=== PATIENT | male | born 1970 | race Hispanic/Latino ===

== ENCOUNTER 2020-03-15 06:35 | Inpatient (IN) | payer MEDICAID ==
[~2020-03-15] VITALS: Ht 172.7 cm; Wt 86.2 kg
[2020-03-15 07:06] VITALS: BP 152/57
--- NOTE | 2020-03-15 07:08 | NUR ---
ED Nurse Note: Patient brought in by ambulance from [place] [facility] d/t hyperglycemia. Patient aao x 4. Patient has dialysis shunt on right lower arm and gets dialysis T,Th, Sat. Patient no c/o pain. Blood sugar upon assessment was 270 mg/dL. Patient is right leg amputee. Patient placed on athletic monitor. Blood collected and sent to lab. Patient unable to produce urine. Patient stable upon assessment.
--- NOTE | 2020-03-15 07:24 | NUR ---
HAND-OFF: Report given to ISMA Purdy.
[2020-03-15] MEDS ORDERED: Acetaminophen 500mg (ES) tab ORAL ONE (07:30)
--- NOTE | 2020-03-15 07:50 | NUR ---
ED Nurse Note: Covid test sent to lab. Pt unable to urinate due to dialysis and refuses straight cath or indwelling, Dr Fletcher aware.
[2020-03-15 08:00] LABS: BASOPHILS % (AUTO) 0.6 % (0.0-2.0); EOSINOPHILS % (AUTO) 0.2 % (0.0-3.0); HEMATOCRIT 30.5 % (42.0-52.0); HEMOGLOBIN 10.5 G/DL (14.2-18.0); LYMPHOCYTES % (AUTO) 12.1 % (20.0-45.0); MEAN CORPUSCULAR VOLUME 89 FL (80-99); MONOCYTES % (AUTO) 8.9 % (1.0-10.0); NEUTROPHILS % (AUTO) 78.2 % (45.0-75.0); PLATELET COUNT 198 K/UL (150-450); RED BLOOD COUNT 3.45 M/UL (4.70-6.10); RED CELL DISTRIBUTION WIDTH 12.9 % (11.6-14.8); WHITE BLOOD COUNT 6.7 K/UL (4.8-10.8)
[2020-03-15 08:13] LABS: ANION GAP 19 mmol/L (5-15); BLOOD UREA NITROGEN 41 mg/dL (7-18); CALCIUM 8.2 MG/DL (8.5-10.1); CARBON DIOXIDE 19 MMOL/L (21-32); CHLORIDE 87 MMOL/L (98-107); POTASSIUM 3.9 MMOL/L (3.5-5.1); SODIUM 124 MMOL/L (136-145)
[2020-03-15 08:28] LABS: ALANINE AMINOTRANSFERASE 26 U/L (12-78); ALBUMIN 3.2 G/DL (3.4-5.0); ALBUMIN/GLOBULIN RATIO 0.7 (1.0-2.7); ALKALINE PHOSPHATASE 71 U/L (46-116); ASPARTATE AMINO TRANSFERASE 31 U/L (15-37); BILIRUBIN,TOTAL 0.7 MG/DL (0.2-1.0); CKMB 0.8 NG/ML (0.0-3.6); CREATINE KINASE 180 U/L (26-308)
--- NOTE | 2020-03-15 08:39 | Emergency Room Report ---
History of Present Illness General Chief Complaint: Fever Source: Medical Record Present Illness HPI 50-year-old male presents ED for evaluation of fever. [facility] Fever x1 day. Temp 103.6 in triage. Denies cough. Denies chest pain or shortness of breath. Patient gets dialysis and may have contact with COVID during dialysis session. No other aggravating relieving factors. Denies any other associated symptoms Allergies: Coded Allergies: No Known Allergies (Verified , 03/05/10) COVID-19 Screening Contact w/high risk pt: Yes Recent Travel to affected area: No Experienced COVID-19 symptoms?: Yes COVID-19 symptoms experienced: Fever (T>100.4F or >38C), Shortness of Breath Patient History Past Medical History: HTN, renal disease, dialysis Past Surgical History: other - R BKA Social History: Denies: smoking, alcohol use, drug use Immunizations: UTD Reviewed Nursing Documentation: PMH: Agreed; PSxH: Agreed Nursing Documentation-PMH Hx Hypertension: Yes Hx Diabetes: Yes - R BKA Hx Gastrointestinal Problems: Yes - GERD, ESRD dialysis Review of Systems All Other Systems: negative except mentioned in HPI Physical Exam Vital Signs Date Time Temp Pulse Resp B/P (MAP) Pulse Ox O2 Delivery O2 Flow Rate FiO2 03/15/20 06:43 103.6 86 20 136/60 (85) 96 Room Air Sp02 EP Interpretation: reviewed, normal General Appearance: no apparent distress, alert, GCS 15, non-toxic Head: normocephalic, atraumatic Eyes: bilateral eye normal inspection, bilateral eye PERRL ENT: hearing grossly normal, normal pharynx, no angioedema, normal voice Neck: full range of motion, supple/symm/no masses Respiratory: chest non-tender, lungs clear, normal breath sounds, speaking full sentences Cardiovascular #1: regular rate, rhythm, no edema Cardiovascular #2: 2+ carotid (R), 2+ carotid (L), 2+ radial (R), 2+ radial (L) , 2+ dorsalis pedis (R), 2+ dorsalis pedis (L) Gastrointestinal: normal bowel sounds, non tender, soft, non-distended, no guarding, no rebound Rectal: deferred Genitourinary: normal inspection, no CVA tenderness Musculoskeletal: back normal, non-tender, other - s/p R BKA Neurologic: alert, motor strength/tone normal, oriented x3, sensory intact, responsive, speech normal Psychiatric: judgement/insight normal, memory normal, mood/affect normal, no suicidal/homicidal ideation Reflexes: 3+ bicep (R), 3+ bicep (L), 3+ tricep (R), 3+ tricep (L), 3+ knee (R) , 3+ knee (L) Skin: other - see nursing skin notes Lymphatic: no adenopathy Medical Decision Making Diagnostic Impression: Primary Impression: Fever Qualified Codes: R50.9 - Fever, unspecified Additional Impression: ESRD (end stage renal disease) on dialysis ER Course Hospital Course 50 yo M presents with fever. h/o ESRD. concern for COVID from SNF Differential diagnoses include: Pneumonia, CHF exacerbation, pneumothorax, fluid overload Clinical course Patient placed on stretcher. In isolation. I wore full PPE. On security monitor with stable vitals. After initial history and physical, I ordered labs , EKG, chest x-ray, blood culture. given tylenol Labs - no leukocytosis, hemoglobin/hematocrit stable, Na 124, BUN/Cr elevated, K ok, trop 0.068, lactate okay CXR - bilateral patchy infiltrates COVID sent. abx given Case discussed with Dr. Mckeon and he agreed to the patient to his service for further care and support I feel this is a highly complex case requiring extensive working including EKG/ Rhythm strip, Xray/CT/US, Blood/urine lab work, repeat exams while in ED, and administration of strong opiates/narcotics for pain control, admission to hospital or close patient follow up. Diagnosis - fever, ESRD Patient admitted to floor in serious condition Labs Test 03/15/20 06:55 White Blood Count 6.7 K/UL (4.8-10.8) Red Blood Count 3.45 M/UL (4.70-6.10) Hemoglobin 10.5 G/DL (14.2-18.0) Hematocrit 30.5 % (42.0-52.0) Mean Corpuscular Volume 89 FL (80-99) Mean Corpuscular Hemoglobin 30.3 PG (27.0-31.0) Mean Corpuscular Hemoglobin Concent 34.3 G/DL (32.0-36.0) Red Cell Distribution Width 12.9 % (11.6-14.8) Platelet Count 198 K/UL (150-450) Mean Platelet Volume 5.7 FL (6.5-10.1) Neutrophils (%) (Auto) 78.2 % (45.0-75.0) Lymphocytes (%) (Auto) 12.1 % (20.0-45.0) Monocytes (%) (Auto) 8.9 % (1.0-10.0) Eosinophils (%) (Auto) 0.2 % (0.0-3.0) Basophils (%) (Auto) 0.6 % (0.0-2.0) Sodium Level 124 MMOL/L (136-145) Potassium Level 3.9 MMOL/L (3.5-5.1) Chloride Level 87 MMOL/L (98-107) Carbon Dioxide Level 19 MMOL/L (21-32) Anion Gap 19 mmol/L (5-15) Blood Urea Nitrogen 41 mg/dL (7-18) Creatinine 8.0 MG/DL (0.55-1.30) Estimat Glomerular Filtration Rate 7.2 mL/min (>60) Glucose Level 298 MG/DL (74-106) Lactic Acid Level 0.70 mmol/L (0.4-2.0) Calcium Level 8.2 MG/DL (8.5-10.1) Total Bilirubin 0.7 MG/DL (0.2-1.0) Aspartate Amino Transf (AST/SGOT) 31 U/L (15-37) Alanine Aminotransferase (ALT/SGPT) 26 U/L (12-78) Alkaline Phosphatase 71 U/L (46-116) Total Creatine Kinase 180 U/L (26-308) Creatine Kinase MB 0.8 NG/ML (0.0-3.6) Creatine Kinase MB Relative Index 0.4 Troponin I 0.068 ng/mL (0.000-0.056) Pro-B-Type Natriuretic Peptide 4247 pg/mL (0-125) Total Protein 7.6 G/DL (6.4-8.2) Albumin 3.2 G/DL (3.4-5.0) Globulin 4.4 g/dL Albumin/Globulin Ratio 0.7 (1.0-2.7) EKG Diagnostic Results Rate: normal Rhythm: NSR ST Segments: no acute changes ASA given to the pt in ED: No Rhythm Strip Diag. Results EP Interpretation: yes Rhythm: NSR, no PVC's, no ectopy Chest X-Ray Diagnostic Results Chest X-Ray Diagnostic Results : Chest X-Ray Ordered: Yes # of Views/Limited/Complete: 1 View Indication: Shortness of Breath EP Interpretation: Yes Interpretation: no pneumothorax, other - bilateral patchy infiltrates Impression: Other - pneumonia Electronically Signed by: Electronically signed by Rio Fletcher MD Last Vital Signs Date Time Temp Pulse Resp B/P (MAP) Pulse Ox O2 Delivery O2 Flow Rate FiO2 03/15/20 07:06 103.6 89 22 152/57 97 Room Air Status: improved Disposition: ADMITTED INPATIENT Condition: Serious Referrals: NON PHYSICIAN (PCP) Rio Fletcher MD Mar 15, 2020 08:39
--- NOTE | 2020-03-15 08:42 | Diagnostic Imaging Report ---
EXAM: XR Chest, 1 View CLINICAL HISTORY: Shortness of breath TECHNIQUE: Frontal view of the chest. COMPARISON: No relevant prior studies available. FINDINGS: Lungs: Bilateral predominantly peripheral groundglass haziness and consolidation. Pleural space: Unremarkable. The costophrenic angles are sharp. No visible pneumothorax. Heart: Cardiomegaly. Mediastinum: Unremarkable. Bones/joints: Unremarkable. Tubes, lines and devices: Telemetry leads overlie the thorax. IMPRESSION: 1. Bilateral predominantly peripheral groundglass haziness and consolidation. This may represent multilobar pneumonia versus pulmonary edema. 2. Cardiomegaly.
[2020-03-15] MEDS ORDERED: Azithromycin 500 MG in D5W 275 ML IVPB ONE (09:15)
[2020-03-15] MEDS ORDERED: Piperacillin/Tazobactam 3.375 GM in NS 110 ML IVPB ONE (09:15)
[2020-03-15] MEDS ORDERED: Hydroxychloroquine Fact Sheet MISC ONE (09:45)
[2020-03-15 10:00] VITALS: BP 151/53
[2020-03-15] MEDS ORDERED: ASPIRIN EC81 MG ORAL (10:19)
[2020-03-15] MEDS ORDERED: LEXAPRO10 MG ORAL (10:19)
[2020-03-15] MEDS ORDERED: ISOSORBIDE MONO30 M1 PO (10:19)
[2020-03-15] MEDS ORDERED: QUETIAPINE FUMA25 MG ORAL (10:19)
[2020-03-15] MEDS ORDERED: PRO-AMATINE10 MG ORAL (10:19)
[2020-03-15] MEDS ORDERED: RANOLAZINE ER500 MG PO (10:19)
[2020-03-15] MEDS ORDERED: HYDRALAZINE HCL10 MG ORAL (10:19)
[2020-03-15] MEDS ORDERED: ATORVASTATIN CA40 MG ORAL (10:19)
[2020-03-15] MEDS ORDERED: LEVEMIR100 UNIT/1 SUBQ (10:19)
[2020-03-15] MEDS ORDERED: REGLAN5 MG ORAL (10:19)
[2020-03-15] MEDS ORDERED: MINOXIDIL10 MG PO (10:19)
[2020-03-15] MEDS ORDERED: FERROUSUL325 M1 PO (10:19)
[2020-03-15] MEDS ORDERED: HUMALOG100 UNIT/4 SUBQ (10:19)
[2020-03-15] MEDS ORDERED: FAMOTIDINE20 MG ORAL (10:19)
[2020-03-15] MEDS ORDERED: NOVOLIN R100 UNIT/1 SUBQ (10:19)
[2020-03-15] MEDS ORDERED: MELATONIN3 M1 ORAL (10:19)
[2020-03-15 12:40] VITALS: BP 146/59
[2020-03-15 14:20] VITALS: BP 150/51
--- NOTE | 2020-03-15 14:29 | NUR ---
ED Nurse Note: Report given to Bacilio ASHBY.
--- NOTE | 2020-03-15 15:40 | NUR ---
ED Nurse Note: Pt transferred to [facility] floor via gurney. Pt took all belongings.
--- NOTE | 2020-03-15 15:50 | NUR ---
NURSE NOTES: Patient arrived to the unit via gurney. Awake, A/O x3. [place] speaking. On room air. VSS. IV in the Left forearm, site is intact. Right arm shunt noted. Bed at the lowest position, bed locked, call light within reach, side rails up x2. Belongings list verified.
--- NOTE | 2020-03-15 15:51 | General Progress Note ---
Progress Note Progress Note [id number] full note dictated Farheen Barcenas MD Mar 15, 2020 15:51
[2020-03-15 16:00] VITALS: BP 129/63
--- NOTE | 2020-03-15 16:14 | Consultation ---
DATE OF CONSULTATION: 03/15/2020 PULMONARY CONSULTATION CONSULTING PHYSICIAN: Don Chowdary M.D. HISTORY OF PRESENT ILLNESS: This is a 50-year-old male who is a detention resident. He has been continued on dialysis. He came to the hospital with shortness of breath. He is also found to be febrile. Patient is unable to provide any further history. PAST MEDICAL HISTORY: Notable for ESRD on dialysis, hypertension. PREVIOUS SURGERIES: Right BKA. SOCIAL HISTORY: No history of alcohol or tobacco. He lives at a detention. HOME MEDICATIONS: Reviewed and reconciled in chart. PHYSICAL EXAMINATION: GENERAL: Reveals a 50-year-old male. HEENT: Unremarkable. CHEST: Showed decreased breath sounds bilaterally with normal heart sounds. ABDOMEN: Soft. EXTREMITIES: There is no edema. He has a right BKA. NEUROLOGIC: Nonfocal. VITAL SIGNS: Blood pressure is 150/60, heart rate is 84, respirations are 20, O2 saturation 97% on room air, T-max 103.6. LABORATORY DATA: Lab testing shows normal CBC except for hemoglobin of 10. Sodium 124, creatinine of 8. Troponin 0.06. Lactic acid 0.7. Influenza A and B is negative. X-ray chest is obtained this morning, which shows bilateral peripheral ground-glass haziness, suspicious for COVID-19. IMPRESSION: 1. Pneumonia, suspect COVID-19. 2. Rule out pulmonary edema. 3. ESRD on dialysis. 4. Hypertension. 5. Right BKA. 6. jail resident. DISCUSSION: Admit to the hospital. I will treat empirically as COVID-19 although this x-ray may also represent pulmonary edema. Patient needs urgent expeditious hemodialysis as well as the use of Plaquenil as well as azithromycin recommended. Await ID evaluation. We will order oxygen and pulmonary hygiene. We will follow. Don Chowdary M.D. DR: RAAD JOB#: [id number] CC:
[2020-03-15] MEDS ORDERED: Albuterol/Ipratropium 3ml neb HHN PRN (17:15)
[2020-03-15] MEDS ORDERED: Insulin Human Regular 100units/ml 3ml SUBQ SCH (17:15)
--- NOTE | 2020-03-15 17:37 | NUR ---
NURSE NOTES: Notified Dr. Mckeon for DVT ppx orders. Awaiting a response.
[2020-03-15] MEDS: NovoLOG Insulin Flexpen SUBQ SCH (18:00)
[2020-03-15] MEDS: cefTRIAXone 1 GM in D5W 55 ML IVPB SCH (18:22)
[2020-03-15] MEDS: Midodrine 10mg tab ORAL SCH (18:22)
[2020-03-15] MEDS: Ranolazine 500mg tab ORAL SCH (18:22)
--- NOTE | 2020-03-15 19:20 | NUR ---
HAND-OFF: Report given to Luis Angel ASHBY.
[2020-03-15 20:00] VITALS: BP 119/63
--- NOTE | 2020-03-15 21:00 | NUR ---
NURSE NOTES: Received patient awake, alert, verbal, febrile, given prn medication for fever.
[2020-03-15] MEDS: HydrALAZINE 10mg Tab ORAL SCH (21:32)
[2020-03-15] MEDS: Atorvastatin 80mg tab ORAL SCH (21:32)
[2020-03-16] VITALS (7 sets, daily range): BP systolic 130–150; BP diastolic 62–85
--- NOTE | 2020-03-16 02:15 | History and Physical Report ---
DATE OF ADMISSION: 03/15/2020 HISTORY OF PRESENT ILLNESS: The patient is a 50-year-old male who came to the emergency room. He has exposure to COVID at hemodialysis center. The patient also has minimum cough and low-grade fever, but he is not short of breath. PAST MEDICAL HISTORY: Significant for end-stage renal disease, hypertension, and diabetes. MEDICATIONS: See the list. ALLERGIES: NKA. FAMILY HISTORY: Noncontributory. SOCIAL HISTORY: The patient lives at jail. PHYSICAL EXAMINATION: GENERAL: This is a young male who is currently awake and comfortable. VITAL SIGNS: Blood pressure is 129/63, pulse 66, respirations 18, temperature 97.5, O2 saturation 98% SKIN: Good skin turgor. HEENT: NAD. CHEST: Bilaterally few crackles, bibasilar. CARDIOVASCULAR: Regular rhythm. No gallop. No murmur. ABDOMEN: Soft. Positive bowel sounds. EXTREMITIES: CCE. NEUROLOGICAL: The patient has no focal deficit. GENITOURINARY: Deferred. LABORATORY AND DIAGNOSTIC DATA: White count 6.7, hemoglobin 11, hematocrit 31, platelets are 198. Sodium 144, potassium 3.9, BUN 41, creatinine 8. EKG, nonspecific ST and T-wave changes. Chest x-ray, chronic interstitial changes. ASSESSMENT: 1. Rule out COVID. 2. End-stage renal disease. 3. Low-grade fever. 4. Hypertension. 5. Fluid overload. PLAN: We will admit on medical floor. Start renal diet and sliding scale. Accu-Chek, hemodialysis, consider Pulmonary and Nephrology consult and ID consult, also keep him in isolation until he ruled out for COVID Iron Mckeon M.D. DR: Roberto JOB#: [id number] CC:
--- NOTE | 2020-03-16 03:00 | Consultation ---
DATE OF CONSULTATION: 03/15/2020 NEPHROLOGY CONSULTATION CONSULTING PHYSICIAN: Farheen Barcenas M.D. REFERRING PHYSICIAN: Kumar Mckeon M.D. REASON FOR CONSULTATION: End-stage renal disease, need for dialysis. HISTORY OF PRESENT ILLNESS: The patient is a 50-year-old male with past medical history significant for diabetes, hypertension, cerebrovascular disease, status post right BKA, history of end-stage renal disease, on dialysis. he received dialysis yesterday, who was brought from long-term facility for evaluation of fever. The patient had a temperature of 103 and probably had close contact with someone who had COVID-19. The patient with these symptoms was admitted in the hospital. I was called for management of renal disease and electrolyte imbalance. This morning, when I saw the patient in ER, the patient continues to be confused, complained of fever and chills. No night sweat. Also complained of mild shortness of breath. PAST MEDICAL HISTORY: 1. End-stage renal disease. 2. Anemia of chronic kidney disease. 3. Renal osteodystrophy. 4. Hypertension. 5. Diabetes. PRIOR SURGICAL HISTORY: 1. History of AV fistula placement. Right upper extremity currently is being used for AV fistula in the forearm. 2. History of BKA. FAMILY HISTORY: Noncontributory. MEDICATIONS: Reviewed. REVIEW OF SYSTEMS: Somewhat vague and very limited. The patient is awake, alert and oriented to his mood and place. He is not providing appropriate answer to my question. PHYSICAL EXAMINATION: VITAL SIGNS: The patient had temperature of 103.6, pulse rate of 86, respiratory rate of 20, blood pressure 136/60. HEAD AND NECK: No JVP. No LAD. No thyromegaly. Extraocular movement intact. Pupils are reactive to light and accommodation. LUNGS: Have decreased breathing sounds. CARDIAC: Regular rate and rhythm. S1 and S2. No murmur. No rub. ABDOMEN: Soft, nontender, and nondistended. EXTREMITIES: Right BKA. Otherwise negative. LABORATORY DATA: Lab values reveal WBC count of 6.7, hemoglobin of 10.5, hematocrit of 30, platelet count of 198. Chemistry revealed sodium 124, potassium 3.6, chloride 87, bicarb 19. BUN of 41, creatinine of 8. Calcium of 8.2. Troponin 0.68. BNP of 4222. ASSESSMENT: 1. Hyponatremia. 2. Hypocalcemia. 3. End-stage renal disease. 4. Anemia of chronic kidney disease. 5. Renal osteodystrophy. 6. Hypertension. 7. Rule out COVID-19. PLAN: Plan for the patient to receive dialysis. We will start IV piggyback normal saline, free water restriction. Repeat sodium level. Check the vitamin D and PTH for evaluation of renal osteodystrophy and hypocalcemia. Monitor electrolytes closely. Again I would like to thank Dr. Iron Mckeon for allowing me to participate in the care of this patient. Farheen Barcenas M.D. DR: YAS JOB#: [id number] CC:
[2020-03-16] MEDS: Calcium Acetate 667mg Tab ORAL SCH ×3 (05:39→16:15)
[2020-03-16] MEDS: HydrALAZINE 10mg Tab ORAL SCH ×3 (05:39→22:00)
--- NOTE | 2020-03-16 06:19 | NUR ---
NURSE NOTES: Spoke with Lee peterson [facility]ph[facility] for hemodialysis scheduled for today.
--- NOTE | 2020-03-16 07:14 | NUR ---
HAND-OFF: Report given to Bacilio Washburn RN.
--- NOTE | 2020-03-16 07:15 | NUR ---
NURSE NOTES: Received patient in bed. Awake, A/O x4. On room air. Patient denies pain. IV in the Left forearm site intact. Right arm dialysis shunt site intact. Patient sitting in semi-fowlers, side rails up x2, bed low and locked, call light within reach.
[2020-03-16] MEDS: Midodrine 10mg tab ORAL SCH ×3 (09:00→17:22)
[2020-03-16] MEDS: Minoxidil 10mg tab ORAL SCH ×2 (09:00→17:22)
[2020-03-16] MEDS: NovoLOG Insulin Flexpen SUBQ SCH ×3 (09:00→17:23)
[2020-03-16] MEDS: Imdur 30mg tab ORAL SCH (09:00)
--- NOTE | 2020-03-16 09:00 | NUR ---
NURSE NOTES: BP meds held d/t HD today.
[2020-03-16] MEDS: Ranolazine 500mg tab ORAL SCH ×2 (09:41→17:04)
[2020-03-16] MEDS: Aspirin EC 81mg tab ORAL SCH (09:41)
--- NOTE | 2020-03-16 10:42 | NUR ---
*-* INSURANCE *-* ALL CLINICALS AND REVIEWS HAVE BEEN FAXED TO: [place] [phone] Work Work Fax
--- NOTE | 2020-03-16 10:42 | NUR ---
*-* NO INSURANCE INFORMATION IN THE BAR UNABLE TO SEND CLINICALS AND REVIEWS *-*
--- NOTE | 2020-03-16 10:45 | Pulmonology Progress Note ---
Assessment/Plan Assessment/Plan IMPRESSION: 1. Pneumonia, suspect COVID-19. 2. Rule out pulmonary edema. 3. ESRD on dialysis. 4. Hypertension. 5. Right BKA. 6. retirement resident. DISCUSSION: Possible COVID-19, although this x-ray may also represent pulmonary edema. Hemodialysis per renal Seen by ID I will order oxygen and pulmonary hygiene. I will follow. Subjective Interval Events: None new Constitutional: Reports: no symptoms HEENT: Repors: no symptoms Respiratory: Reports: no symptoms Cardiovascular: Reports: no symptoms Gastrointestinal/Abdominal: Reports: no symptoms Allergies: Coded Allergies: No Known Allergies (Verified , 03/05/10) Objective Last 24 Hour Vital Signs Date Time Temp Pulse Resp B/P (MAP) Pulse Ox O2 Delivery O2 Flow Rate FiO2 03/16/20 08:00 98.1 64 18 141/69 (93) 94 03/16/20 05:39 131/68 03/16/20 04:00 99.1 64 20 131/68 (89) 97 03/16/20 00:05 99.4 65 20 140/69 (92) 97 03/15/20 22:03 99.4 03/15/20 21:32 119/63 03/15/20 20:25 Room Air 03/15/20 20:00 102.0 64 20 119/63 (81) 97 03/15/20 16:28 Room Air 03/15/20 16:00 97.5 66 18 129/63 (85) 98 03/15/20 15:40 102.0 82 16 142/50 96 Room Air 03/15/20 14:20 102.0 85 18 150/51 97 Room Air 03/15/20 12:40 102.0 81 22 146/59 96 Room Air Intake and Output 03/15/20 03/16/20 19:00 07:00 Intake Total 100 ml 240 ml Balance 100 ml 240 ml Intake Oral 100 ml 240 ml General Appearance: no acute distress HEENT: normocephalic Respiratory/Chest: chest wall non-tender, lungs clear Cardiovascular: normal peripheral pulses, normal rate Abdomen: normal bowel sounds Microbiology Date/Time Source Procedure Growth Status 03/15/20 07:50 Nasal Nares - Final Complete 03/15/20 07:50 Nasal Nares - Final Complete Current Medications Medications (Trade) Dose Ordered Sig/Rima Route PRN Reason Start Time Stop Time Status Last Admin Dose Admin Acetaminophen (Tylenol) 650 mg Q4H PRN ORAL Mild Pain (Pain Scale 1-3) 03/15/20 21:15 04/14/20 21:14 03/15/20 21:33 Albuterol/ Ipratropium (Albuterol/ Ipratropium) 3 ml Q6HRT PRN HHN Shortness of Breath 03/15/20 17:15 03/20/20 17:14 Aspirin (Ecotrin) 81 mg DAILY ORAL 03/16/20 09:00 04/30/20 08:59 03/16/20 09:41 Atorvastatin Calcium (Lipitor) 40 mg BEDTIME ORAL 03/15/20 21:00 06/13/20 20:59 03/15/20 21:32 Calcium Acetate (Phoslo) 1,334 mg TIAC ORAL 03/16/20 06:30 06/14/20 06:29 03/16/20 05:39 Ceftriaxone Sodium 1 gm/ Dextrose 55 ml @ 110 mls/hr Q24H IVPB 03/15/20 17:15 03/22/20 17:14 03/15/20 18:22 Dextrose (Dextrose 50%) 25 ml Q30M PRN IV Hypoglycemia 03/15/20 18:00 06/13/20 17:59 Dextrose (Dextrose 50%) 50 ml Q30M PRN IV Hypoglycemia 03/15/20 18:00 06/13/20 17:59 Escitalopram Oxalate (Lexapro) 5 mg DAILY ORAL 03/16/20 09:00 04/15/20 08:59 03/16/20 09:40 Famotidine (Pepcid) 20 mg DAILY ORAL 03/16/20 09:00 06/14/20 08:59 03/16/20 09:41 Ferrous Sulfate (Feosol) 325 mg DAILY ORAL 03/16/20 09:00 06/14/20 08:59 03/16/20 09:41 Hydralazine HCl (Apresoline) 10 mg EVERY 8 HOURS ORAL 03/15/20 22:00 06/13/20 21:59 03/16/20 05:39 Hydroxychloroquine Sulfate (Plaquenil) 200 mg Q12HR ORAL 03/16/20 09:00 03/19/20 21:01 03/16/20 09:41 Insulin Aspart (NovoLOG) TWICE A DAY SUBQ 03/15/20 18:00 06/13/20 17:59 Insulin Aspart (NovoLOG) 12 units DAILY SUBQ 03/16/20 09:00 06/14/20 08:59 03/16/20 09:30 Isosorbide Mononitrate (Imdur) 30 mg DAILY ORAL 03/16/20 09:00 04/15/20 08:59 Metoclopramide HCl (Reglan) 5 mg TID ORAL 03/15/20 18:00 04/14/20 17:59 03/16/20 09:41 Midodrine (Pro-Amatine) 10 mg THREE TIMES A DAY ORAL 03/15/20 18:00 06/13/20 17:59 03/15/20 18:22 Minoxidil (Loniten) 10 mg MoWeFr@0900,1800 ORAL 03/16/20 09:00 06/14/20 08:59 Minoxidil (Loniten) 10 mg Traylor@0900,1800 ORAL 03/22/20 09:00 06/20/20 08:59 Non-Formulary Medication (Non-Formulary Med) 1 ea BEDTIME ORAL 03/15/20 21:00 04/14/20 20:59 UNV Quetiapine Fumarate (SEROqueL) 25 mg DAILY ORAL 03/16/20 09:00 04/30/20 08:59 03/16/20 09:40 Ranolazine (Ranexa ER 500mg) 500 mg BID ORAL 03/15/20 18:00 06/13/20 17:59 03/16/20 09:41 Don Chowdary MD Mar 16, 2020 10:45
--- NOTE | 2020-03-16 11:51 | NUR ---
NURSE NOTES: Tylenol 650mg taken out twice d/t patient spill the first time.
--- NOTE | 2020-03-16 13:00 | Consultation ---
DATE OF CONSULTATION: 03/16/2020 INFECTIOUS DISEASES CONSULTATION CONSULTING PHYSICIAN: Efren Mcmanus M.D. REFERRING PHYSICIAN: Iron Mckeon M.D. REASON FOR CONSULTATION: To rule out COVID-19 pneumonia. HISTORY OF PRESENTING ILLNESS: This is a 50-year-old gentleman with history of diabetes, hypertension, renal failure, on dialysis, who apparently comes in with fever and cough. There was a concern for COVID-19 pneumonia and an Infectious Diseases consultation has been obtained for antibiotics. Apparently, he had exposure to COVID-19 at dialysis. PAST MEDICAL HISTORY: 1. History of diabetes. 2. Hypertension. 3. Renal failure, on dialysis. MEDICATIONS: As an inpatient, he is on minoxidil, hydroxychloroquine was started yesterday, aspirin, Lexapro, famotidine, ferrous sulfate, Imdur, Seroquel, insulin, calcium acetate, hydralazine, Tylenol, atorvastatin, metoclopramide, midodrine, ranolazine, ceftriaxone, and albuterol. ALLERGIES: No known drug allergies. SOCIAL HISTORY: He does not smoke, drink, or use drugs. FAMILY HISTORY: Noncontributory. REVIEW OF SYSTEMS: RESPIRATORY: He has fever. He has cough. No shortness of breath. No chest pain. CARDIAC: No chest pain. No palpitation. No dizziness. No syncope. GASTROINTESTINAL: No nausea. No vomiting. No abdominal pain or diarrhea. PHYSICAL EXAMINATION: VITAL SIGNS: Temperature of 98.1, T-max of 103.6, pulse of 64, respiratory rate 18, blood pressure 141/69, O2 saturation of 94%. Examination deferred due to possibility of COVID-19. LABORATORY AND DIAGNOSTIC DATA: White count 6.7, hemoglobin 10.5, hematocrit 30.5, MCV 89, platelet count of 198. Sodium 124, potassium 3.9, chloride 87, bicarb 19, BUN 41, creatinine 8, glucose 298, calcium 8.2. Total bilirubin 0.7, AST 31, ALT 26, alkaline phosphatase 71. CK of 180, CK-MB 0.8. Troponin 0.068. Beta-natriuretic peptide 4247. Total protein 7.6, albumin 3.2. Nasal swab was negative for influenza A and B. Chest x-ray is showing bilateral predominantly peripheral ground-glass haziness and consolidation may represent multilobar pneumonia versus pulmonary edema. ASSESSMENT: 1. This is a 50-year-old gentleman with history of diabetes, hypertension, renal failure, on dialysis, who comes in with cough and low-grade fever with exposure to COVID-19 in the dialysis center, would be concerned regarding COVID-19 pneumonia. 2. Fevers, improving. 3. Diabetes. 4. Hypertension. 5. Renal failure, on dialysis. PLAN: 1. Continue hydroxychloroquine three more days. 2. Continue ceftriaxone for now. 3. We will follow up COVID-19 swab testing. 4. We will follow up the patient clinically. I would like to thank, Dr. Mckeon for this consultation. Efren Mcmanus M.D. DR: SAUL JOB#: [id number] CC: Iron Mckeon M.D.; Fax#: [phone]
--- NOTE | 2020-03-16 14:00 | NUR ---
NURSE NOTES: Per [facility], patient to receive HD 6-7 PM.
[2020-03-16] MEDS: cefTRIAXone 1 GM in D5W 55 ML IVPB SCH (16:15)
--- NOTE | 2020-03-16 17:00 | NUR ---
NURSE NOTES: Notified MD we are unable to get someone to bring trintellix 10 mg from the patient's halfway to the hospital. Awaiting for response.
--- NOTE | 2020-03-16 19:15 | NUR ---
HAND-OFF: Report given to Renatau RN.
--- NOTE | 2020-03-16 19:30 | NUR ---
NURSE NOTES: Called [facility] and spoke with Jacinto. Called to inform that patient is awaiting for HD scheduled today. Will continue to follow up.
--- NOTE | 2020-03-16 19:46 | NUR ---
NURSE NOTES: Patient is awake, alert, and verbally responsive. Speak [place]. Breathing unlabored on room air without distress. Denies pain or discomfort at this time. IV noted on left forearm intact, dry, clean, and patent running IV antibiotic. Right BKA. Left great toe amputee. Bed placed at the lowest with alarm, brake, and siderails up for safety. Call light placed within reach. Will continue to monitor.
--- NOTE | 2020-03-16 19:49 | NUR ---
NURSE NOTES: [facility] for [facility] after 2200. Will continue to follow up.
[2020-03-16] MEDS: Atorvastatin 80mg tab ORAL SCH (20:33)
--- NOTE | 2020-03-16 23:11 | NUR ---
NURSE NOTES: Hepatitis B surface antigen sample will be drawn tomorrow for send out. Today's send outs have been sent out already per Lab.
--- NOTE | 2020-03-17 01:05 | NUR ---
NURSE NOTES: 3L output for HD. End vital sign reading: BP 152/76 HR 110 Temp 98 F RR 20. Patient verbalized SOB, placed on 2L O2 via NC and called RT. Will continue to monitor.
[2020-03-17 04:00] VITALS: BP 153/67
[2020-03-17] MEDS: HydrALAZINE 10mg Tab ORAL SCH ×3 (06:17→21:21)
[2020-03-17] MEDS: Calcium Acetate 667mg Tab ORAL SCH ×3 (06:17→18:05)
--- NOTE | 2020-03-17 07:22 | NUR ---
HAND-OFF: Report given to ISMA Singh. Plan of care endorsed.
--- NOTE | 2020-03-17 07:23 | NUR ---
NURSE NOTES: Received patient in bed, awake,denies pain or discomfort @ this time. IV is intact, no s/s of infiltration. Bed is in lowest position and locked. Call light and personnel items within reach. Will continue plan of care.
[2020-03-17 08:00] VITALS: BP 117/57
[2020-03-17] MEDS: Imdur 30mg tab ORAL SCH (09:00)
[2020-03-17] MEDS: Aspirin EC 81mg tab ORAL SCH (10:01)
--- NOTE | 2020-03-17 10:01 | NUR ---
NURSE NOTES: Given tylenol 650mg po due to fever of 100.4
[2020-03-17] MEDS: NovoLOG Insulin Flexpen SUBQ SCH ×3 (10:02→18:07)
[2020-03-17] MEDS: Midodrine 10mg tab ORAL SCH ×3 (10:02→18:05)
[2020-03-17] MEDS: Ranolazine 500mg tab ORAL SCH ×2 (10:02→18:05)
--- NOTE | 2020-03-17 10:07 | NUR ---
CASE MANAGEMENT: INITIAL REVIEW 50YR OLD MALE FROM [facility] CC: FEVER SI:COVID R/O . END STAGE RENAL DISEASE ON HEMODIALYSIS . 103.6 86 20 136/60 96% ON RA TROP 0.068 BNP 4247 H/H 10.5/30.5 NA+ 124 CL- 87 CO2- 19 BUN 41 CREAT 8.0 BG 298 IS:IV ZOSYN X1 IV ZITHROMAX X1 PO PLAQUENIL X1 TYLENOL PO X1 CHEST X-RAY- pneumonia versus pulmonary edema.Cardiomegaly \: 4E MED SURG UNIT DCP: [place] [facility] PLAN: (+) COVID-19 CASE MANAGEMENT: REVIEW 03/16/20 SI:COVID-19 (+) . ESRD ON HD . 100.6 66 19 141/72 95% ON RA IS:PO PLAQUENIL BID X8 DOSES IV ROCEPHIN Q24HR SEROQUEL PO QD HYDRALAZINE PO Q8HR MIDODRINE PO TID FEOSOL PO QD LEXAPRO PO QD NOVOLOG SQ TID PHOSLO PO TIAC RANEXA ER PO TID \: 4E MED SURG UNIT DCP: [place] [facility] CASE MANAGEMENT: REVIEW 03/17/20 SI:COVID-19 (+) . ESRD ON HD 98.2 74 19 139/96 94% ON RA IS:PO PLAQUENIL BID X8 DOSES IV ROCEPHIN Q24HR SEROQUEL PO QD HYDRALAZINE PO Q8HR MIDODRINE PO TID FEOSOL PO QD LEXAPRO PO QD NOVOLOG SQ TID PHOSLO PO TIAC RANEXA ER PO TID \: 4E MED SURG UNIT DCP: [place] [facility] PL[facility]: PLAQUENIL X 3MORE DAYS CONT ROCEPHIN REPEAT COVID-19 TEST
--- NOTE | 2020-03-17 11:36 | Pulmonology Progress Note ---
Assessment/Plan Assessment/Plan IMPRESSION: 1. Pneumonia, positive COVID-19. 2. Rule out pulmonary edema. 3. ESRD on dialysis. 4. Hypertension. 5. Right BKA. 6. snf resident. DISCUSSION: Positive COVID-19. Hemodialysis per renal Seen by ID Continue oxygen and pulmonary hygiene. I will follow. Subjective Interval Events: None new; is + COVID 19 Constitutional: Reports: no symptoms HEENT: Repors: no symptoms Respiratory: Reports: no symptoms Cardiovascular: Reports: no symptoms Gastrointestinal/Abdominal: Reports: no symptoms Allergies: Coded Allergies: No Known Allergies (Verified , 03/05/10) Objective Last 24 Hour Vital Signs Date Time Temp Pulse Resp B/P (MAP) Pulse Ox O2 Delivery O2 Flow Rate FiO2 03/17/20 09:00 117/57 03/17/20 09:00 Room Air 03/17/20 08:00 100.4 89 19 117/57 (77) 94 03/17/20 06:17 98.7 03/17/20 06:17 153/75 03/17/20 04:00 99.7 98 19 153/67 (95) 96 03/16/20 23:51 99.0 82 20 130/66 (87) 92 03/16/20 22:00 150/85 03/16/20 21:00 Room Air 03/16/20 20:27 65 18 95 Room Air 21 03/16/20 20:00 100.2 74 18 150/85 (106) 94 03/16/20 16:00 99.3 62 18 130/62 (84) 95 03/16/20 13:32 141/72 03/16/20 12:00 100.6 66 19 141/72 (95) 95 Intake and Output 03/16/20 03/17/20 19:00 07:00 Intake Total 600 ml 480 ml Output Total 3000 ml Balance 600 ml -2520 ml Intake Oral 480 ml Other 600 ml Output Hemodialysis UF 3000 ml General Appearance: no acute distress HEENT: normocephalic Respiratory/Chest: chest wall non-tender, lungs clear Cardiovascular: normal peripheral pulses Abdomen: normal bowel sounds Microbiology Date/Time Source Procedure Growth Status 03/15/20 06:55 Blood Blood Culture - Preliminary NO GROWTH AFTER 24 HOURS Resulted 03/15/20 06:40 Blood Blood Culture - Preliminary NO GROWTH AFTER 24 HOURS Resulted 03/15/20 14:24 Nasal Nares MRSA Culture - Final NO METHICILLIN RESISTANT STAPH AUREUS... Complete 03/15/20 07:50 Nasal Nares - Final Complete 03/15/20 07:50 Nasal Nares - Final Complete 03/15/20 07:50 Nasopharynx Coronavirus COVID-19 PCR (OTIS) - Final Complete 03/15/20 14:24 Rectum VRE Culture - Final NO VANCOMYCIN RESISTANT ENTEROCOCCUS ... Complete 03/15/20 14:24 Rectum - Final NO CARBAPENEM-RESISTANT ENTEROBACTERI... Complete Laboratory Tests 03/17/20 05:10: Magnesium Level 2.2, Hepatitis B Surface Antigen [Pending] Current Medications Medications (Trade) Dose Ordered Sig/Rima Route PRN Reason Start Time Stop Time Status Last Admin Dose Admin Acetaminophen (Tylenol) 650 mg Q4H PRN ORAL Mild Pain (Pain Scale 1-3) 03/15/20 21:15 04/14/20 21:14 03/17/20 10:01 Albuterol/ Ipratropium (Combivent Respimat) 1 puff Q6H PRN INH SHORTNESS OF BREATH 03/17/20 01:30 04/16/20 01:29 Aspirin (Ecotrin) 81 mg DAILY ORAL 03/16/20 09:00 04/30/20 08:59 03/17/20 10:01 Atorvastatin Calcium (Lipitor) 40 mg BEDTIME ORAL 03/15/20 21:00 06/13/20 20:59 03/16/20 20:33 Calcium Acetate (Phoslo) 1,334 mg TIAC ORAL 03/16/20 06:30 06/14/20 06:29 03/17/20 06:17 Ceftriaxone Sodium 1 gm/ Dextrose 55 ml @ 110 mls/hr Q24H IVPB 03/15/20 17:15 03/22/20 17:14 03/16/20 16:15 Dextrose (Dextrose 50%) 25 ml Q30M PRN IV Hypoglycemia 03/15/20 18:00 06/13/20 17:59 Dextrose (Dextrose 50%) 50 ml Q30M PRN IV Hypoglycemia 03/15/20 18:00 06/13/20 17:59 Escitalopram Oxalate (Lexapro) 5 mg DAILY ORAL 03/16/20 09:00 04/15/20 08:59 03/17/20 10:00 Famotidine (Pepcid) 20 mg DAILY ORAL 03/16/20 09:00 06/14/20 08:59 03/17/20 10:01 Ferrous Sulfate (Feosol) 325 mg DAILY ORAL 03/16/20 09:00 06/14/20 08:59 03/17/20 10:00 Hydralazine HCl (Apresoline) 10 mg EVERY 8 HOURS ORAL 03/15/20 22:00 06/13/20 21:59 03/17/20 06:17 Hydroxychloroquine Sulfate (Plaquenil) 200 mg Q12HR ORAL 03/16/20 09:00 03/19/20 21:01 03/17/20 10:02 Insulin Aspart (NovoLOG) TWICE A DAY SUBQ 03/15/20 18:00 06/13/20 17:59 03/17/20 10:03 Insulin Aspart (NovoLOG) 12 units DAILY SUBQ 03/16/20 09:00 06/14/20 08:59 03/17/20 10:02 Isosorbide Mononitrate (Imdur) 30 mg DAILY ORAL 03/16/20 09:00 04/15/20 08:59 Metoclopramide HCl (Reglan) 5 mg TID ORAL 03/15/20 18:00 04/14/20 17:59 03/17/20 10:00 Midodrine (Pro-Amatine) 10 mg THREE TIMES A DAY ORAL 03/15/20 18:00 06/13/20 17:59 03/17/20 10:02 Minoxidil (Loniten) 10 mg MoWeFr@0900,1800 ORAL 03/16/20 09:00 06/14/20 08:59 Minoxidil (Loniten) 10 mg Traylor@0900,1800 ORAL 03/22/20 09:00 06/20/20 08:59 Quetiapine Fumarate (SEROqueL) 25 mg DAILY ORAL 03/16/20 09:00 04/30/20 08:59 03/17/20 10:00 Ranolazine (Ranexa ER 500mg) 500 mg BID ORAL 03/15/20 18:00 06/13/20 17:59 03/17/20 10:02 Don Chowdary MD Mar 17, 2020 11:36
[2020-03-17 12:00] VITALS: BP 136/68
[2020-03-17 16:00] VITALS: BP 109/57
--- NOTE | 2020-03-17 17:00 | Progress Note ---
DATE: 03/17/2020 SUBJECTIVE: This is a 50-year-old male who came for fever, rule out COVID. The patient's COVID test is still pending. Physically, he is doing better. Fever is subsided. He is not short of breath. OBJECTIVE: VITAL SIGNS: Blood pressure is 150/90, pulse 84, respirations 18, no fever. HEENT: NAD. CHEST: Bilaterally clear. CARDIOVASCULAR: Regular rhythm. No gallop. No murmur. ABDOMEN: Soft. Positive bowel sounds. Nontender. EXTREMITIES: No edema. GENITOURINARY: Deferred. LABORATORY DATA: Labs are pending. ASSESSMENT: 1. Fever, rule out COVID. 2. End-stage renal disease. 3. Hypertension. 4. Overweight. DIET: Renal diet. ACTIVITY: As tolerated. Continue supportive treatment and waiting for COVID test. Iron Mckeon M.D. DR: Roberto JOB#: [id number] CC:
--- NOTE | 2020-03-17 18:06 | NUR ---
NURSE NOTES: Patient's temp was 101.7, cooling measure done and administered tylenol as ordered. Will continue to monitor. Denies pain or discomfort. No SOB @ this time.
--- NOTE | 2020-03-17 19:45 | NUR ---
HAND-OFF: Report given to Minsu and endorsed plan of care.
--- NOTE | 2020-03-17 19:45 | NUR ---
NURSE NOTES: Patient asleep. Breathing unlabored on room air. No s/s of pain or distress. Bed placed at the lowest with alarm, brake, and siderails up for safety. Call light placed within reach. IV noted on left forearm intact. Right arm AV shunt bruit and thrill present. Right arm precaution. Will continue to monitor and provide care as ordered.
[2020-03-17 20:00] VITALS: BP 120/61
--- NOTE | 2020-03-17 21:08 | Nephrology Progress Note ---
Assessment/Plan Assessment 1. Hyponatremia. 2. Hypocalcemia. 3. End-stage renal disease. 4. Anemia of chronic kidney disease. 5. Renal osteodystrophy. 6. Hypertension. 7. COVID-19. Plan continue epogen dialysis as schedule continue renagel Subjective Constitutional: Reports: malaise, weakness HEENT: Reports: no symptoms Genitourinary: Reports: no symptoms Neurologic/Psychiatric: Reports: no symptoms Objective Objective Last 24 Hour Vital Signs Date Time Temp Pulse Resp B/P (MAP) Pulse Ox O2 Delivery O2 Flow Rate FiO2 03/17/20 18:36 99.9 03/17/20 16:00 101.1 70 20 109/57 (74) 92 03/17/20 14:48 131/74 03/17/20 12:00 100.2 82 20 136/68 (90) 92 03/17/20 09:00 117/57 03/17/20 09:00 Room Air 03/17/20 08:00 100.4 89 19 117/57 (77) 94 03/17/20 06:17 153/75 03/17/20 04:00 99.7 98 19 153/67 (95) 96 03/16/20 23:51 99.0 82 20 130/66 (87) 92 03/16/20 22:00 150/85 Intake and Output 03/16/20 03/17/20 19:00 07:00 Intake Total 600 ml 480 ml Output Total 3000 ml Balance 600 ml -2520 ml Intake Oral 480 ml Other 600 ml Output Hemodialysis UF 3000 ml Laboratory Tests 03/17/20 05:10: Magnesium Level 2.2, Hepatitis B Surface Antigen [Pending] Height (Feet): 5 Height (Inches): 8.00 Weight (Pounds): 207 Objective HEAD AND NECK: No JVP. No LAD. No thyromegaly. Extraocular movement intact. Pupils are reactive to light and accommodation. LUNGS: Have decreased breathing sounds. CARDIAC: Regular rate and rhythm. S1 and S2. No murmur. No rub. ABDOMEN: Soft, nontender, and nondistended. EXTREMITIES: Right BKA. Otherwise negative. Farheen Barcenas MD Mar 17, 2020 21:08
[2020-03-17] MEDS: Atorvastatin 80mg tab ORAL SCH (21:20)
[2020-03-18] VITALS (7 sets, daily range): BP systolic 122–150; BP diastolic 50–81
--- NOTE | 2020-03-18 01:04 | NUR ---
NURSE NOTES: Patient afebrile at this time. Will continue to monitor and provide cooling measures.
--- NOTE | 2020-03-18 02:49 | NUR ---
NURSE NOTES: Called [facility] to schedule dialysis. Spoke with Jacinto.
[2020-03-18] MEDS: Calcium Acetate 667mg Tab ORAL SCH ×3 (05:58→16:30)
[2020-03-18] MEDS: HydrALAZINE 10mg Tab ORAL SCH ×3 (06:00→22:00)
--- NOTE | 2020-03-18 06:50 | NUR ---
NURSE NOTES: Patient temperature reading 100.0 orally. tylenol and cooling measures performed. Will monitor.
--- NOTE | 2020-03-18 07:36 | NUR ---
HAND-OFF: Report given to ISMA Tejada. Plan of care endorsed.
--- NOTE | 2020-03-18 08:30 | NUR ---
NURSE NOTES: RN RECEIVED CALL FROM [facility] N[facility], SHE WILL COME LATE AFTERNOON FOR HEMODIALYSIS. HOLD BP MEDS AND BLOOD THINNERS PER DIALYSIS NURSE.
[2020-03-18] MEDS: Midodrine 10mg tab ORAL SCH ×3 (09:13→17:50)
[2020-03-18] MEDS: Minoxidil 10mg tab ORAL SCH ×2 (09:14→17:50)
[2020-03-18] MEDS: Imdur 30mg tab ORAL SCH (09:14)
[2020-03-18] MEDS: Ranolazine 500mg tab ORAL SCH ×2 (09:14→17:50)
[2020-03-18] MEDS: Aspirin EC 81mg tab ORAL SCH (09:14)
--- NOTE | 2020-03-18 09:16 | Pulmonology Progress Note ---
Assessment/Plan Assessment/Plan IMPRESSION: 1. Pneumonia, positive COVID-19. 2. Rule out pulmonary edema. 3. ESRD on dialysis. 4. Hypertension. 5. Right BKA. 6. long term resident. DISCUSSION: Positive COVID-19. Hemodialysis per renal Seen by ID Continue oxygen and pulmonary hygiene. I will follow. Subjective ROS Limited/Unobtainable: Yes Interval Events: None new; is + COVID 19 Constitutional: Reports: no symptoms HEENT: Repors: no symptoms Respiratory: Reports: no symptoms Cardiovascular: Reports: no symptoms Gastrointestinal/Abdominal: Reports: no symptoms Allergies: Coded Allergies: No Known Allergies (Verified , 03/05/10) Objective Last 24 Hour Vital Signs Date Time Temp Pulse Resp B/P (MAP) Pulse Ox O2 Delivery O2 Flow Rate FiO2 03/18/20 09:00 99.2 79 128/72 (90) 03/18/20 07:35 101.1 03/18/20 06:58 102.8 03/18/20 06:00 150/67 03/18/20 04:00 100.4 88 20 150/67 (94) 94 03/18/20 00:00 98.9 78 20 128/72 (90) 97 03/17/20 21:21 123/68 03/17/20 21:11 67 19 96 Room Air 21 03/17/20 21:00 Room Air 03/17/20 20:00 99.0 81 19 120/61 (80) 95 03/17/20 16:00 101.1 70 20 109/57 (74) 92 03/17/20 14:48 131/74 03/17/20 12:00 100.2 82 20 136/68 (90) 92 Intake and Output 03/17/20 03/18/20 19:00 07:00 Intake Total 800 ml Balance 800 ml Intake Oral 800 ml # Voids 1 # Bowel Movements 5 General Appearance: no acute distress HEENT: normocephalic Respiratory/Chest: chest wall non-tender, lungs clear Cardiovascular: normal peripheral pulses Abdomen: normal bowel sounds Microbiology Date/Time Source Procedure Growth Status 03/15/20 14:24 Nasal Nares MRSA Culture - Final NO METHICILLIN RESISTANT STAPH AUREUS... Complete 03/15/20 14:24 Rectum VRE Culture - Final NO VANCOMYCIN RESISTANT ENTEROCOCCUS ... Complete 4/19/20 14:24 Rectum - Final NO CARBAPENEM-RESISTANT ENTEROBACTERI... Complete Current Medications Medications (Trade) Dose Ordered Sig/Rima Route PRN Reason Start Time Stop Time Status Last Admin Dose Admin Acetaminophen (Tylenol) 650 mg Q4H PRN ORAL Mild Pain (Pain Scale 1-3) 03/15/20 21:15 04/14/20 21:14 03/18/20 06:31 Albuterol/ Ipratropium (Combivent Respimat) 1 puff Q6H PRN INH SHORTNESS OF BREATH 03/17/20 01:30 04/16/20 01:29 Aspirin (Ecotrin) 81 mg DAILY ORAL 03/16/20 09:00 04/30/20 08:59 03/17/20 10:01 Atorvastatin Calcium (Lipitor) 40 mg BEDTIME ORAL 03/15/20 21:00 06/13/20 20:59 03/17/20 21:20 Calcium Acetate (Phoslo) 1,334 mg TIAC ORAL 03/16/20 06:30 06/14/20 06:29 03/18/20 05:58 Dextrose (Dextrose 50%) 25 ml Q30M PRN IV Hypoglycemia 03/15/20 18:00 06/13/20 17:59 Dextrose (Dextrose 50%) 50 ml Q30M PRN IV Hypoglycemia 03/15/20 18:00 06/13/20 17:59 Escitalopram Oxalate (Lexapro) 5 mg DAILY ORAL 03/16/20 09:00 04/15/20 08:59 03/17/20 10:00 Famotidine (Pepcid) 20 mg DAILY ORAL 03/16/20 09:00 06/14/20 08:59 03/17/20 10:01 Ferrous Sulfate (Feosol) 325 mg DAILY ORAL 03/16/20 09:00 06/14/20 08:59 03/17/20 10:00 Hydralazine HCl (Apresoline) 10 mg EVERY 8 HOURS ORAL 03/15/20 22:00 06/13/20 21:59 03/17/20 21:21 Hydroxychloroquine Sulfate (Plaquenil) 200 mg Q12HR ORAL 03/16/20 09:00 03/19/20 21:01 03/17/20 21:21 Insulin Aspart (NovoLOG) TWICE A DAY SUBQ 03/15/20 18:00 06/13/20 17:59 03/17/20 18:07 Insulin Aspart (NovoLOG) 12 units DAILY SUBQ 03/16/20 09:00 06/14/20 08:59 03/17/20 10:02 Isosorbide Mononitrate (Imdur) 30 mg DAILY ORAL 03/16/20 09:00 04/15/20 08:59 Metoclopramide HCl (Reglan) 5 mg TID ORAL 03/15/20 18:00 04/14/20 17:59 03/17/20 18:05 Midodrine (Pro-Amatine) 10 mg THREE TIMES A DAY ORAL 03/15/20 18:00 06/13/20 17:59 03/17/20 18:05 Minoxidil (Loniten) 10 mg MoWeFr@0900,1800 ORAL 03/16/20 09:00 06/14/20 08:59 Minoxidil (Loniten) 10 mg Traylor@0900,1800 ORAL 03/22/20 09:00 06/20/20 08:59 Quetiapine Fumarate (SEROqueL) 25 mg DAILY ORAL 03/16/20 09:00 04/30/20 08:59 03/17/20 10:00 Ranolazine (Ranexa ER 500mg) 500 mg BID ORAL 03/15/20 18:00 06/13/20 17:59 03/17/20 18:05 Don Chowdary MD Mar 18, 2020 09:16
[2020-03-18] MEDS: NovoLOG Insulin Flexpen SUBQ SCH ×3 (09:27→18:06)
--- NOTE | 2020-03-18 10:39 | Infectious Diseases Prog Note ---
Assessment/Plan Assessment/Plan antibiotics : hydroxychloroquine A 1. COVID 19 pneumonia 2. diabetes mellitus 3. hypertension 4. renal failure on HD P 1. continue hydroxychloroquine 1 more day 2. continue isolation Subjective Constitutional: Denies: fever, chills Respiratory: Denies: shortness of breath, dry cough Gastrointestinal/Abdominal: Denies: nausea, vomiting, diarrhea Musculoskeletal: Denies: pain Allergies: Coded Allergies: No Known Allergies (Verified , 03/05/10) Objective Vital Signs Last 24 Hour Vital Signs Date Time Temp Pulse Resp B/P (MAP) Pulse Ox O2 Delivery O2 Flow Rate FiO2 03/18/20 09:14 128/72 03/18/20 09:14 128/72 03/18/20 09:00 99.2 79 128/72 (90) 03/18/20 08:00 99.2 79 21 128/72 (90) 97 03/18/20 07:35 101.1 03/18/20 06:58 102.8 03/18/20 06:00 150/67 03/18/20 04:00 100.4 88 20 150/67 (94) 94 03/18/20 00:00 98.9 78 20 128/72 (90) 97 03/17/20 21:21 123/68 03/17/20 21:11 67 19 96 Room Air 21 03/17/20 21:00 Room Air 03/17/20 20:00 99.0 81 19 120/61 (80) 95 03/17/20 16:00 101.1 70 20 109/57 (74) 92 03/17/20 14:48 131/74 03/17/20 12:00 100.2 82 20 136/68 (90) 92 Height (Feet): 5 Height (Inches): 8.00 Weight (Pounds): 204 Microbiology Date/Time Source Procedure Growth Status 03/15/20 14:24 Nasal Nares MRSA Culture - Final NO METHICILLIN RESISTANT STAPH AUREUS... Complete 03/15/20 14:24 Rectum VRE Culture - Final NO VANCOMYCIN RESISTANT ENTEROCOCCUS ... Complete 03/15/20 14:24 Rectum - Final NO CARBAPENEM-RESISTANT ENTEROBACTERI... Complete Current Medications Medications (Trade) Dose Ordered Sig/Rima Route PRN Reason Start Time Stop Time Status Last Admin Dose Admin Acetaminophen (Tylenol) 650 mg Q4H PRN ORAL Mild Pain (Pain Scale 1-3) 03/15/20 21:15 04/14/20 21:14 03/18/20 06:31 Albuterol/ Ipratropium (Combivent Respimat) 1 puff Q6H PRN INH SHORTNESS OF BREATH 03/17/20 01:30 04/16/20 01:29 Aspirin (Ecotrin) 81 mg DAILY ORAL 03/16/20 09:00 04/30/20 08:59 03/18/20 09:14 Atorvastatin Calcium (Lipitor) 40 mg BEDTIME ORAL 03/15/20 21:00 06/13/20 20:59 03/17/20 21:20 Calcium Acetate (Phoslo) 1,334 mg TIAC ORAL 03/16/20 06:30 06/14/20 06:29 03/18/20 05:58 Dextrose (Dextrose 50%) 25 ml Q30M PRN IV Hypoglycemia 03/15/20 18:00 06/13/20 17:59 Dextrose (Dextrose 50%) 50 ml Q30M PRN IV Hypoglycemia 03/15/20 18:00 06/13/20 17:59 Escitalopram Oxalate (Lexapro) 5 mg DAILY ORAL 03/16/20 09:00 04/15/20 08:59 03/18/20 09:14 Famotidine (Pepcid) 20 mg DAILY ORAL 03/16/20 09:00 06/14/20 08:59 03/18/20 09:14 Ferrous Sulfate (Feosol) 325 mg DAILY ORAL 03/16/20 09:00 06/14/20 08:59 03/18/20 09:14 Hydralazine HCl (Apresoline) 10 mg EVERY 8 HOURS ORAL 03/15/20 22:00 06/13/20 21:59 03/17/20 21:21 Hydroxychloroquine Sulfate (Plaquenil) 200 mg Q12HR ORAL 03/16/20 09:00 03/19/20 21:01 03/18/20 09:13 Insulin Aspart (NovoLOG) TWICE A DAY SUBQ 03/15/20 18:00 06/13/20 17:59 03/18/20 09:27 Insulin Aspart (NovoLOG) 12 units DAILY SUBQ 03/16/20 09:00 06/14/20 08:59 03/18/20 09:28 Isosorbide Mononitrate (Imdur) 30 mg DAILY ORAL 03/16/20 09:00 04/15/20 08:59 03/18/20 09:14 Metoclopramide HCl (Reglan) 5 mg TID ORAL 03/15/20 18:00 04/14/20 17:59 03/18/20 09:14 Midodrine (Pro-Amatine) 10 mg THREE TIMES A DAY ORAL 03/15/20 18:00 06/13/20 17:59 03/18/20 09:13 Minoxidil (Loniten) 10 mg MoWeFr@0900,1800 ORAL 03/16/20 09:00 06/14/20 08:59 03/18/20 09:14 Minoxidil (Loniten) 10 mg Traylor@0900,1800 ORAL 03/22/20 09:00 06/20/20 08:59 Quetiapine Fumarate (SEROqueL) 25 mg DAILY ORAL 03/16/20 09:00 04/30/20 08:59 03/18/20 09:14 Ranolazine (Ranexa ER 500mg) 500 mg BID ORAL 03/15/20 18:00 06/13/20 17:59 03/18/20 09:14 Efren Mcmanus MD Mar 18, 2020 10:39
--- NOTE | 2020-03-18 10:57 | NUR ---
NURSE NOTES: PT AXOX4, CALM, RESTING IN BED. DENIES PAIN AND COUGHING AT THIS TIME. BED IN LOWEST POSITION WITH BEDSIDE RAILS X2 RAISED. CALL LIGHT WITHIN REACH. IN NO APPARENT DISTRESS AT THIS TIME. WILL CONTINUE TO MONITOR.
--- NOTE | 2020-03-18 15:32 | NUR ---
CASE MANAGEMENT: REVIEW 03/18/20 SI:COVID-19 (+) . ESRD ON HD 101.1 79 21 128/72 97% ON RA IS:PO PLAQUENIL BID X8 DOSES IV ROCEPHIN Q24HR SEROQUEL PO QD LONITEN PO MWF IMDUR PO QD HYDRALAZINE PO Q8HR MIDODRINE PO TID FEOSOL PO QD LEXAPRO PO QD NOVOLOG SQ TID PHOSLO PO TIAC RANEXA ER PO TID \: 4E MED SURG UNIT DCP: [place] [facility] PLAN: PLAQUENIL X 2MORE DAYS CONT ROCEPHIN REPEAT COVID-19 TEST CONTROL FEVERS CONT TO ISOLATE
--- NOTE | 2020-03-18 15:37 | NUR ---
*-* INSURANCE *-* ALL CLINICALS AND REVIEWS HAVE BEEN FAXED TO: [facility] [phone] Work Work Fax
--- NOTE | 2020-03-18 19:14 | Progress Note ---
DATE: 03/18/2020 SUBJECTIVE: This is a 50-year-old male, currently in bed, comfortable, no distress. OBJECTIVE: VITAL SIGNS: Blood pressure 128/72, pulse 79, T-max 101 yesterday. GENERAL: Eyes are open. HEENT: NAD. CHEST: Bilateral decreased breath sounds. CARDIOVASCULAR: Regular rhythm. ABDOMEN: Soft. EXTREMITIES: No CCE. NEUROLOGICAL: The patient has no focal deficit. LABORATORY DATA: His magnesium is 2.2. We are waiting for COVID results; from 03/15/2020, he is positive. ASSESSMENT: 1. Fever, rule out sepsis. 2. COVID positive. 3. End-stage renal disease. 4. Hypertension. PLAN: We will currently continue current medical treatment. We will continue minoxidil and albuterol. Continue hydroxychloroquine, Lexapro, Pepcid, minoxidil, calcium, and hydralazine. Discussed with charge nurse. Iron Mckeon M.D. DR: Chio JOB#: [id number] CC:
--- NOTE | 2020-03-18 19:27 | NUR ---
HAND-OFF: Report given to Radha SHORT RN.
--- NOTE | 2020-03-18 19:30 | NUR ---
NURSE NOTES: received patient on bed, awake and verbally responsive. no sob. with dialysis scheduled today, per agatha (dialysis nurse ) she will come late evening. with iv line on the left forearm, saline lock. no pain or discomfort. call light and light button within easy reach. will observe strict isolation. will continue plan of care.
[2020-03-18] MEDS: Atorvastatin 80mg tab ORAL SCH (20:36)
--- NOTE | 2020-03-18 22:00 | NUR ---
NURSE NOTES: agatha (dialysis nurse) came and started dialysis.
[2020-03-19] VITALS (27 sets, daily range): BP systolic 72–152; BP diastolic 33–83
--- NOTE | 2020-03-19 01:00 | NUR ---
NURSE NOTES: dialysis done. per dialysis nurse, 3liters out from dialysis and the patient is stable. cook fruit took the vitals with an elevation of the temp. tylenol was given as ordered. ice pack refused.
[2020-03-19] MEDS: HydrALAZINE 10mg Tab ORAL SCH ×3 (05:38→22:00)
[2020-03-19 05:49] LABS: HEMATOCRIT 29.1 % (42.0-52.0); HEMOGLOBIN 9.8 G/DL (14.2-18.0); MEAN CORPUSCULAR VOLUME 90 FL (80-99); PLATELET COUNT 209 K/UL (150-450); RED BLOOD COUNT 3.22 M/UL (4.70-6.10); RED CELL DISTRIBUTION WIDTH 13.6 % (11.6-14.8); WHITE BLOOD COUNT 8.2 K/UL (4.8-10.8)
[2020-03-19] MEDS: Calcium Acetate 667mg Tab ORAL SCH ×3 (06:30→16:39)
--- NOTE | 2020-03-19 07:06 | NUR ---
HAND-OFF: Report given to nayely ga.
[2020-03-19 07:40] LABS: ALANINE AMINOTRANSFERASE 19 U/L (12-78); ALBUMIN 2.5 G/DL (3.4-5.0); ALBUMIN/GLOBULIN RATIO 0.5 (1.0-2.7); ALKALINE PHOSPHATASE 67 U/L (46-116); ANION GAP 16 mmol/L (5-15); ASPARTATE AMINO TRANSFERASE 54 U/L (15-37); BILIRUBIN,TOTAL 0.6 MG/DL (0.2-1.0); BLOOD UREA NITROGEN 38 mg/dL (7-18); CALCIUM 8.9 MG/DL (8.5-10.1); CARBON DIOXIDE 23 MMOL/L (21-32); CHLORIDE 92 MMOL/L (98-107); CREATININE 7.3 MG/DL (0.55-1.30); SODIUM 131 MMOL/L (136-145)
[2020-03-19] MEDS: Midodrine 10mg tab ORAL SCH ×3 (09:35→18:00)
[2020-03-19] MEDS: Aspirin EC 81mg tab ORAL SCH (09:35)
[2020-03-19] MEDS: Imdur 30mg tab ORAL SCH (09:36)
[2020-03-19] MEDS: Ranolazine 500mg tab ORAL SCH ×2 (09:36→18:00)
[2020-03-19] MEDS: NovoLOG Insulin Flexpen SUBQ SCH ×3 (09:39→18:00)
--- NOTE | 2020-03-19 11:14 | NUR ---
RD ASSESSMENT & RECOMMENDATIONS SEE CARE ACTIVITY FOR COMPLETE ASSESSMENT DAILY ESTIMATED NEEDS: Needs based on ESRD/ 72kg abw 25-30 kcals/kg 8604-8973 total kcals 1.25-1.8 g protein/kg 90-129 g total protein 20-22 mL/kg 2207-2317 total fluid mLs NUTRITION DIAGNOSIS: * Increased protein intake needs R/T ESRD dx as evidenced by pt is HD dependent * Altered nutrition related lab values R/T diabetes as evidenced by elev BGs and POC glu ([phone]). CURRENT DIET:RENAL, no red meat/fish PO DIET RECOMMENDATIONS: RENAL + CCHO MED ADDITIONAL RECOMMENDATIONS: * Maintain calibrated bedscale wt * No red meat/fish per pt preference * Nephrovite x 1 * Rec adding Vit D supplement: (Vit D level 12) * Monitor BGs, need for long acting insulin
--- NOTE | 2020-03-19 12:17 | NUR ---
CASE MANAGEMENT: REVIEW 03/18/20 SI:COVID-19 (+) . ESRD ON HD 98.3 83 20 106/50 97% ON RA IS:PO PLAQUENIL BID X8 DOSES IV ROCEPHIN Q24HR SEROQUEL PO QD LONITEN PO MWF IMDUR PO QD HYDRALAZINE PO Q8HR MIDODRINE PO TID FEOSOL PO QD LEXAPRO PO QD NOVOLOG SQ TID PHOSLO PO TIAC RANEXA ER PO TID \: 4E MED SURG UNIT DCP: [place] [facility] PLAN: CONTROL FEVERS: last fever 102.0 @ 0208 CONT TO ISOLATE GOAL: 72HR NO FEVER + NO ACETAMINOPHEN
--- NOTE | 2020-03-19 14:04 | Infectious Diseases Prog Note ---
Assessment/Plan Assessment/Plan A 1. COVID 19 pneumonia 2. diabetes mellitus 3. hypertension 4. renal failure on HD P 1. continue hydroxychloroquine until tonight 2. continue isolation Subjective ROS Limited/Unobtainable: Yes Constitutional: Reports: fever, other - [id number] Allergies: Coded Allergies: No Known Allergies (Verified , 03/05/10) Objective Vital Signs Last 24 Hour Vital Signs Date Time Temp Pulse Resp B/P (MAP) Pulse Ox O2 Delivery O2 Flow Rate FiO2 03/19/20 12:00 98.4 79 18 100/48 (65) 92 03/19/20 09:36 104/50 03/19/20 09:00 Room Air 03/19/20 07:45 78 16 96 Room Air 21 03/19/20 05:38 104/50 03/19/20 04:00 98.3 83 20 106/50 (68) 97 03/19/20 02:08 102.0 03/19/20 00:00 100.9 88 20 132/67 (88) 96 03/18/20 22:00 122/50 03/18/20 22:00 80 18 95 Room Air 21 03/18/20 21:00 Room Air 03/18/20 20:00 98.3 84 20 122/50 (74) 97 03/18/20 17:50 130/53 03/18/20 16:00 98.8 82 20 130/53 (78) 97 03/18/20 14:51 132/81 Height (Feet): 5 Height (Inches): 8.00 Weight (Pounds): 204 General Appearance: no acute distress HEENT: mucous membranes moist Respiratory/Chest: lungs clear Cardiovascular: normal rate Abdomen: soft, non tender Extremities: other - R BKA Neurologic/Psychiatric: other - sleeping Laboratory Tests Test 03/19/20 04:00 White Blood Count 8.2 K/UL (4.8-10.8) Red Blood Count 3.22 M/UL (4.70-6.10) L Hemoglobin 9.8 G/DL (14.2-18.0) L Hematocrit 29.1 % (42.0-52.0) L Mean Corpuscular Volume 90 FL (80-99) Mean Corpuscular Hemoglobin 30.5 PG (27.0-31.0) Mean Corpuscular Hemoglobin Concent 33.7 G/DL (32.0-36.0) Red Cell Distribution Width 13.6 % (11.6-14.8) Platelet Count 209 K/UL (150-450) Mean Platelet Volume 5.9 FL (6.5-10.1) L Neutrophils (%) (Auto) % (45.0-75.0) Lymphocytes (%) (Auto) % (20.0-45.0) Monocytes (%) (Auto) % (1.0-10.0) Eosinophils (%) (Auto) % (0.0-3.0) Basophils (%) (Auto) % (0.0-2.0) Differential Total Cells Counted 100 Neutrophils % (Manual) 88 % (45-75) H Lymphocytes % (Manual) 6 % (20-45) L Monocytes % (Manual) 5 % (1-10) Eosinophils % (Manual) 1 % (0-3) Basophils % (Manual) 0 % (0-2) Band Neutrophils 0 % (0-8) Platelet Estimate Adequate Platelet Morphology Normal Red Blood Cell Morphology Normal Hypochromasia 1+ Sodium Level 131 MMOL/L (136-145) L Potassium Level 4.0 MMOL/L (3.5-5.1) Chloride Level 92 MMOL/L (98-107) L Carbon Dioxide Level 23 MMOL/L (21-32) Anion Gap 16 mmol/L (5-15) H Blood Urea Nitrogen 38 mg/dL (7-18) H Creatinine 7.3 MG/DL (0.55-1.30) H Estimat Glomerular Filtration Rate 8.0 mL/min (>60) Glucose Level 187 MG/DL (74-106) H Calcium Level 8.9 MG/DL (8.5-10.1) Total Bilirubin 0.6 MG/DL (0.2-1.0) Aspartate Amino Transf (AST/SGOT) 54 U/L (15-37) H Alanine Aminotransferase (ALT/SGPT) 19 U/L (12-78) Alkaline Phosphatase 67 U/L (46-116) Total Protein 7.2 G/DL (6.4-8.2) Albumin 2.5 G/DL (3.4-5.0) L Globulin 4.7 g/dL Albumin/Globulin Ratio 0.5 (1.0-2.7) L Current Medications Medications (Trade) Dose Ordered Sig/Rima Route PRN Reason Start Time Stop Time Status Last Admin Dose Admin Acetaminophen (Tylenol) 650 mg Q4H PRN ORAL Mild Pain (Pain Scale 1-3) 03/15/20 21:15 04/14/20 21:14 03/19/20 01:38 Albuterol/ Ipratropium (Combivent Respimat) 1 puff Q6H PRN INH SHORTNESS OF BREATH 03/17/20 01:30 04/16/20 01:29 Aspirin (Ecotrin) 81 mg DAILY ORAL 03/16/20 09:00 04/30/20 08:59 03/19/20 09:35 Atorvastatin Calcium (Lipitor) 40 mg BEDTIME ORAL 03/15/20 21:00 06/13/20 20:59 03/18/20 20:36 Calcium Acetate (Phoslo) 1,334 mg TIAC ORAL 03/16/20 06:30 06/14/20 06:29 03/19/20 12:39 Dextrose (Dextrose 50%) 25 ml Q30M PRN IV Hypoglycemia 03/15/20 18:00 06/13/20 17:59 Dextrose (Dextrose 50%) 50 ml Q30M PRN IV Hypoglycemia 03/15/20 18:00 06/13/20 17:59 Escitalopram Oxalate (Lexapro) 5 mg DAILY ORAL 03/16/20 09:00 04/15/20 08:59 03/19/20 09:35 Famotidine (Pepcid) 20 mg DAILY ORAL 03/16/20 09:00 06/14/20 08:59 03/19/20 09:35 Ferrous Sulfate (Feosol) 325 mg DAILY ORAL 03/16/20 09:00 06/14/20 08:59 03/19/20 09:35 Hydralazine HCl (Apresoline) 10 mg EVERY 8 HOURS ORAL 03/15/20 22:00 06/13/20 21:59 03/17/20 21:21 Hydroxychloroquine Sulfate (Plaquenil) 200 mg Q12HR ORAL 03/16/20 09:00 03/19/20 21:01 03/19/20 09:35 Insulin Aspart (NovoLOG) TWICE A DAY SUBQ 03/15/20 18:00 06/13/20 17:59 03/19/20 09:41 Insulin Aspart (NovoLOG) 12 units DAILY SUBQ 03/16/20 09:00 06/14/20 08:59 03/19/20 09:39 Isosorbide Mononitrate (Imdur) 30 mg DAILY ORAL 03/16/20 09:00 04/15/20 08:59 03/18/20 09:14 Metoclopramide HCl (Reglan) 5 mg TID ORAL 03/15/20 18:00 04/14/20 17:59 03/19/20 12:39 Midodrine (Pro-Amatine) 10 mg THREE TIMES A DAY ORAL 03/15/20 18:00 06/13/20 17:59 03/19/20 12:39 Minoxidil (Loniten) 10 mg MoWeFr@0900,1800 ORAL 03/16/20 09:00 06/14/20 08:59 03/18/20 09:14 Minoxidil (Loniten) 10 mg Traylor@0900,1800 ORAL 03/22/20 09:00 06/20/20 08:59 Quetiapine Fumarate (SEROqueL) 25 mg DAILY ORAL 03/16/20 09:00 04/30/20 08:59 03/19/20 09:35 Ranolazine (Ranexa ER 500mg) 500 mg BID ORAL 03/15/20 18:00 06/13/20 17:59 03/19/20 09:36 Jose C Barcenas MD Mar 19, 2020 14:04
--- NOTE | 2020-03-19 14:09 | Pulmonology Progress Note ---
Assessment/Plan Assessment/Plan IMPRESSION: 1. Pneumonia, positive COVID-19. 2. Rule out pulmonary edema. 3. ESRD on dialysis. 4. Hypertension. 5. Right BKA. 6. retirement resident. DISCUSSION: Positive COVID-19. Hemodialysis per renal Seen by ID Continue oxygen and pulmonary hygiene. I will follow. Subjective ROS Limited/Unobtainable: Yes Interval Events: None new; is + COVID 19 Constitutional: Reports: fever, other - [id number]=[id number] HEENT: Repors: no symptoms Respiratory: Reports: no symptoms Cardiovascular: Reports: no symptoms Gastrointestinal/Abdominal: Denies: nausea, vomiting, diarrhea Musculoskeletal: Denies: pain Allergies: Coded Allergies: No Known Allergies (Verified , 03/05/10) Objective Last 24 Hour Vital Signs Date Time Temp Pulse Resp B/P (MAP) Pulse Ox O2 Delivery O2 Flow Rate FiO2 03/19/20 12:00 98.4 79 18 100/48 (65) 92 03/19/20 09:36 104/50 03/19/20 09:00 Room Air 03/19/20 07:45 78 16 96 Room Air 21 03/19/20 05:38 104/50 03/19/20 04:00 98.3 83 20 106/50 (68) 97 03/19/20 02:08 102.0 03/19/20 00:00 100.9 88 20 132/67 (88) 96 03/18/20 22:00 122/50 03/18/20 22:00 80 18 95 Room Air 21 03/18/20 21:00 Room Air 03/18/20 20:00 98.3 84 20 122/50 (74) 97 03/18/20 17:50 130/53 03/18/20 16:00 98.8 82 20 130/53 (78) 97 03/18/20 14:51 132/81 Intake and Output 03/18/20 03/19/20 19:00 07:00 Intake Total 700 ml 350 ml Output Total 3000 ml Balance 700 ml -2650 ml Intake Oral 700 ml 350 ml Output Hemodialysis UF 3000 ml # Voids 1 # Bowel Movements 1 General Appearance: no acute distress HEENT: mucous membranes moist Respiratory/Chest: chest wall non-tender, lungs clear Cardiovascular: normal peripheral pulses Abdomen: soft, non tender Extremities: other - R BKA Neurologic/Psychiatric: other - sleeping Laboratory Tests 03/19/20 04:00: White Blood Count 8.2, Red Blood Count 3.22L, Hemoglobin 9.8L, Hematocrit 29.1L , Mean Corpuscular Volume 90, Mean Corpuscular Hemoglobin 30.5, Mean Corpuscular Hemoglobin Concent 33.7, Red Cell Distribution Width 13.6, Platelet Count 209, Mean Platelet Volume 5.9L, Neutrophils (%) (Auto) , Lymphocytes (%) ( Auto) , Monocytes (%) (Auto) , Eosinophils (%) (Auto) , Basophils (%) (Auto) , Differential Total Cells Counted 100, Neutrophils % (Manual) 88H, Lymphocytes % (Manual) 6L, Monocytes % (Manual) 5, Eosinophils % (Manual) 1, Basophils % ( Manual) 0, Band Neutrophils 0, Platelet Estimate Adequate, Platelet Morphology Normal, Red Blood Cell Morphology Normal, Hypochromasia 1+, Sodium Level 131L, Potassium Level 4.0, Chloride Level 92L, Carbon Dioxide Level 23, Anion Gap 16H , Blood Urea Nitrogen 38H, Creatinine 7.3H, Estimat Glomerular Filtration Rate 8.0, Glucose Level 187H, Calcium Level 8.9, Total Bilirubin 0.6, Aspartate Amino Transf (AST/SGOT) 54H, Alanine Aminotransferase (ALT/SGPT) 19, Alkaline Phosphatase 67, Total Protein 7.2, Albumin 2.5L, Globulin 4.7, Albumin/Globulin Ratio 0.5L Current Medications Medications (Trade) Dose Ordered Sig/Rima Route PRN Reason Start Time Stop Time Status Last Admin Dose Admin Acetaminophen (Tylenol) 650 mg Q4H PRN ORAL Mild Pain (Pain Scale 1-3) 03/15/20 21:15 04/14/20 21:14 03/19/20 01:38 Albuterol/ Ipratropium (Combivent Respimat) 1 puff Q6H PRN INH SHORTNESS OF BREATH 03/17/20 01:30 04/16/20 01:29 Aspirin (Ecotrin) 81 mg DAILY ORAL 03/16/20 09:00 04/30/20 08:59 03/19/20 09:35 Atorvastatin Calcium (Lipitor) 40 mg BEDTIME ORAL 03/15/20 21:00 06/13/20 20:59 03/18/20 20:36 Calcium Acetate (Phoslo) 1,334 mg TIAC ORAL 03/16/20 06:30 06/14/20 06:29 03/19/20 12:39 Dextrose (Dextrose 50%) 25 ml Q30M PRN IV Hypoglycemia 03/15/20 18:00 06/13/20 17:59 Dextrose (Dextrose 50%) 50 ml Q30M PRN IV Hypoglycemia 03/15/20 18:00 06/13/20 17:59 Escitalopram Oxalate (Lexapro) 5 mg DAILY ORAL 03/16/20 09:00 04/15/20 08:59 03/19/20 09:35 Famotidine (Pepcid) 20 mg DAILY ORAL 03/16/20 09:00 06/14/20 08:59 03/19/20 09:35 Ferrous Sulfate (Feosol) 325 mg DAILY ORAL 03/16/20 09:00 06/14/20 08:59 03/19/20 09:35 Hydralazine HCl (Apresoline) 10 mg EVERY 8 HOURS ORAL 03/15/20 22:00 06/13/20 21:59 03/17/20 21:21 Hydroxychloroquine Sulfate (Plaquenil) 200 mg Q12HR ORAL 03/16/20 09:00 03/19/20 21:01 03/19/20 09:35 Insulin Aspart (NovoLOG) TWICE A DAY SUBQ 03/15/20 18:00 06/13/20 17:59 03/19/20 09:41 Insulin Aspart (NovoLOG) 12 units DAILY SUBQ 03/16/20 09:00 06/14/20 08:59 03/19/20 09:39 Isosorbide Mononitrate (Imdur) 30 mg DAILY ORAL 03/16/20 09:00 04/15/20 08:59 03/18/20 09:14 Metoclopramide HCl (Reglan) 5 mg TID ORAL 03/15/20 18:00 04/14/20 17:59 03/19/20 12:39 Midodrine (Pro-Amatine) 10 mg THREE TIMES A DAY ORAL 03/15/20 18:00 06/13/20 17:59 03/19/20 12:39 Minoxidil (Loniten) 10 mg MoWeFr@0900,1800 ORAL 03/16/20 09:00 06/14/20 08:59 03/18/20 09:14 Minoxidil (Loniten) 10 mg Traylor@0900,1800 ORAL 03/22/20 09:00 06/20/20 08:59 Quetiapine Fumarate (SEROqueL) 25 mg DAILY ORAL 03/16/20 09:00 04/30/20 08:59 03/19/20 09:35 Ranolazine (Ranexa ER 500mg) 500 mg BID ORAL 03/15/20 18:00 06/13/20 17:59 03/19/20 09:36 Don Chowdary MD Mar 19, 2020 14:09
--- NOTE | 2020-03-19 14:26 | NUR ---
*-* INSURANCE *-* ALL CLINICALS AND REVIEWS HAVE BEEN FAXED TO: [facility] [phone] Work Work Fax
--- NOTE | 2020-03-19 14:32 | NUR ---
NURSE NOTES: PT AXOX4, CALM, RESTING IN BED. PT HAD REMOVED IV ACCESS EARLIER, STATING HE DID NOT NEED IT AND REFUSING RE-INSERTION AT THIS TIME. IN NO APPARENT DISTRESS AT THIS TIME. PT DENIES PAIN OR SOB. BED IN LOWEST POSITION WITH BEDSIDE RAILS X2 RAISED. CALL LIGHT WITHIN REACH. WILL CONTINUE TO MONITOR.
--- NOTE | 2020-03-19 17:00 | NUR ---
NURSE NOTES: RN WENT INTO ROOM TO BRING PT'S DINNER. RN WOKE UP PT. PT ATTEMPTED TO SIT UP IN BED BUT WAS WEAK AND UNABLE TO SIT UP, EVEN WITH RN'S SUPPORT. RN PLACED PT IN HIGH VELAZQUEZ'S POSITION AND CHECKED BLOOD SUGAR, 257. VITALS WERE CHECKED, AND LOW BP AND OXYGEN SATURATION AT 67%. PET SITTER WAS CALLED. PT STOPPED BREATHING AND PULSE WAS NOT PALPABLE. CODE BLUE WAS CALLED. CPR WAS INITIATED UNTIL CODE BLUE ARRIVED.
--- NOTE | 2020-03-19 18:05 | NUR ---
NURSE NOTES: REPORT GIVEN TO [facility] ICU CRN.
--- NOTE | 2020-03-19 18:15 | NUR ---
RECEIVED FRMiguelangel S/P CODE /INTUBATED IN 4E ON VENT FAMILY NOTIFIED Yamile WHITTINGTON JI
--- NOTE | 2020-03-19 18:15 | NUR ---
RESPIRATORY NOTE: Code Blue: CLINICAL CARE COORDINATOR then code blue 19 was called. CPR and bagging was performed by RT and RN. Pt was intubated with ETT 7.5 @ 24cm lip line, secured by anchor fast. Pt was successfully resuscitated, transferred to ICU and placed in the ventilator with the settings: AC 20-500ml- 100%-peep 5, saturated at 37%. Increased peep to 8-10-12 then 15, pt has low saturation on peep of 15 (saturated at 81%). RN Fidencio and Yaneth at bedside and aware. Alarms are set and audible, vent is plugged into the red outlet, ambu bag with peep valve and virus filter at bedside. Will continue to monitor.
--- NOTE | 2020-03-19 18:19 | NUR ---
NURSE NOTES: RN ATTEMPTED TO CONTACT PT'S BROTHER VAL FREEDMAN PER FACE SHEET X3 REGARDING CODE BLUE/CHANGE OF CONDITION. PHONE CONTINUES TO RING WITHOUT ANSWER OR OPTION TO LEAVE VOICEMAIL. RN ENDORSED TO ALICE WONG TO CONTACT MARISSA ROWLEY TO ENDORSE CONTACTING FAMILY.
--- NOTE | 2020-03-19 19:00 | NUR ---
NURSE NOTES: Received report from ISMA Rodriguez. Patient has no response to pain, no eye opening. Patient intubated with ETT 7.5, 24 lipline. AC 20, 500, PEEP 15, 100% saturation. With right subclavian TLC, receiving Dopamine 20mcg/kg/min. Left hand g 20 heplock. With right BKA. Jatinder Baltazarung, no chest xray to confirm ET placement and TLC placement has been done yet. Right NGT inserted, called thermal technician to inform him of stat Chest xray and KUB. Addendum: 03/20/20 at 0030 by ANUSHA DACOSTA RN NURSE NOTES: correction: AC 20, 500, PEEP 15, 100% FiO2
--- NOTE | 2020-03-19 19:23 | NUR ---
NURSE NOTES: RN MADE ALICE MINA AT ICU AWARE THAT RN WAS UNABLE TO REACH PT'S BROTHER MUNDO.
--- NOTE | 2020-03-19 19:47 | Emergency Room Report ---
History of Present Illness General Chief Complaint: Fever Source: Medical Record Present Illness Allergies: Coded Allergies: No Known Allergies (Verified , 03/05/10) COVID-19 Screening Contact w/high risk pt: Yes Recent Travel to affected area: No Experienced COVID-19 symptoms?: Yes COVID-19 symptoms experienced: Fever (T>100.4F or >38C), Shortness of Breath Nursing Documentation-H Past Medical History: No History, Except For Hx Cardiac Problems: Yes Hx Hypertension: Yes Hx Diabetes: Yes Hx Cancer: No Hx Gastrointestinal Problems: Yes Hx Neurological Problems: No Physical Exam Vital Signs Date Time Temp Pulse Resp B/P (MAP) Pulse Ox O2 Delivery O2 Flow Rate FiO2 03/15/20 07:06 89 22 Room Air 03/15/20 07:06 103.6 152/57 97 03/16/20 20:27 21 General Appearance: GCS 15 Procedures Critical Care Time Critical Care Time Patient had a critical medical condition which untreated could potentially result in life or limb threatening injury. Total critical care time excluding procedures approximately 45 minutes. Central Line Central Line : Consent: Emergent Central Line Lumen: triple Maximal Sterile Barrier Tech: yes cap, yes mask, yes sterile gown, yes sterile gloves, yes large sterile sheet, yes hand hygiene, yes chlorhexidine prep Central Line Postion: subclavian (R) Complications: none Central Line Post Position: sutured, good blood return Attempts: Other Patient Tolerated: Well Complications: None Intubation Intubation : Consent: Emergent Intubation Method: orotracheal Tube Size (cm): 8.0 Medications: Other - None Breath Sounds after Intubation: equal Intubation Complications: no complications Post Intubation Xray: Yes Attempts: Other - 2 Patient Tolerated: Well Complications: None Medical Decision Making Diagnostic Impression: Primary Impression: Fever Qualified Codes: R50.9 - Fever, unspecified Additional Impression: ESRD (end stage renal disease) on dialysis ER Course Patient is noted to have cardiac arrest. Patient was no no prior history of renal disease. Patient was intubated with glide scope with direct visualization of vocal cords. Patient was noted to have return of spontaneous circulation briefly and then had subsequent arrest. Patient was given multiple medications per code sheet. Patient was noted to have persistent hypotension and central venous catheter was placed emergently. Patient was subsequent placed on mechanical ventilation after return of spontaneous circulation and transferred to ICU. Last Vital Signs Date Time Temp Pulse Resp B/P (MAP) Pulse Ox O2 Delivery O2 Flow Rate FiO2 03/19/20 18:30 98 20 72/33 (46) 94 03/19/20 18:14 100 03/19/20 15:43 102.7 03/19/20 09:00 Room Air Status: improved Disposition: ADMITTED INPATIENT Condition: Stable Referrals: NON PHYSICIAN (PCP) Carlos Fletcher MD Mar 19, 2020 19:47
[2020-03-19] MEDS ORDERED: DOPamine 400mg/250ml 250 ML IV SCH (20:04)
--- NOTE | 2020-03-19 20:11 | NUR ---
NURSE NOTES: ophthalmology technician at bedside for chest xray post intubation and central line insertion and KUB for NGT placement confirmation.
--- NOTE | 2020-03-19 20:17 | NUR ---
NURSE NOTES: Called patient's brother Alverto, updated him of patient's condition. As per him, he still wants everything done for his brother and to remain full code.
--- NOTE | 2020-03-19 20:33 | Diagnostic Imaging Report ---
EXAM: XR Chest, 1 View CLINICAL HISTORY: S/P INTUB TECHNIQUE: Frontal view of the chest. COMPARISON: 03/15/20. FINDINGS: Lungs: Areas of increased hazy opacities in the lungs which appears unchanged to slightly improved compared to the prior exam. Pleural space: No definite plain film evidence for pneumothorax Heart: Prominence of the cardiac silhouette. Mediastinum: Unremarkable. Bones/joints: Unremarkable. Tubes, lines and devices: Endotracheal tube with tip approximately 3 cm above the marcia. Nasogastric tube with tip below the hemidiaphragms. Right-sided subclavian central line with tip projected in the region of the superior vena cava/right atrium. IMPRESSION: 1. Areas of increased hazy opacities in the lungs which appears unchanged to slightly improved compared to the prior exam. 2. Prominence of the cardiac silhouette. 3. Lines and tubes as described above.
--- NOTE | 2020-03-19 20:35 | Diagnostic Imaging Report ---
EXAM: XR Abdomen, 1 View CLINICAL HISTORY: NGT TECHNIQUE: Frontal supine view of the abdomen/pelvis. COMPARISON: No relevant prior studies available. FINDINGS: The lower pelvis and a portion of right side of the abdomen are not included in the imaging field and cannot be evaluated. Gastrointestinal tract: No definite plain film evidence for significant bowel loop dilation to suggest an obstructive process. Bones/joints: The bones are grossly unremarkable. Tubes, lines and devices: Nasogastric tube with tip projected in the region of the body/fundus of the stomach. IMPRESSION: Nasogastric tube with tip projected in the region of the body/fundus of the stomach.
--- NOTE | 2020-03-19 21:00 | NUR ---
NURSE NOTES: Called Dr. Chowdary to relay ABG results and if the undersigned can release the information about the patient's Covid swab results to his brother over the phone. Left a message. Awaiting for return call.
--- NOTE | 2020-03-19 21:00 | NUR ---
NURSE NOTES: As per kelly Ellis to use central line.
--- NOTE | 2020-03-19 21:30 | NUR ---
NURSE NOTES: Received return call from Dr. Chowdary. As per him the undersigned may inform the patient's brother regarding the Covid swab result over the phone. Vent setting of AC 20, 500, PEEP 10, 90% FiO2. ABG and chest Xray in the morning and Start propofol. Orders read back and verified by . Addendum: 03/20/20 at 0033 by ANUSHA DACOSTA RN NURSE NOTES: Informed Dr. Chowdary that patient is not responding to pain at this time, confirmed with him that he still wants patient on Propofol.
[2020-03-19] MEDS: Atorvastatin 20mg tab ORAL SCH (21:33)
[2020-03-19] MEDS: DOPamine 400mg/250ml 250 ML IV SCH (21:34)
--- NOTE | 2020-03-19 21:55 | NUR ---
NURSE NOTES: Called patient's brother as per his request, informed him of patient's Covid swab results.
--- NOTE | 2020-03-19 23:17 | Nephrology Progress Note ---
Assessment/Plan Assessment 1. Hyponatremia. 2. Hypocalcemia. 3. End-stage renal disease. 4. Anemia of chronic kidney disease. 5. Renal osteodystrophy. 6. Hypertension. 7. COVID-19. 8. s/p code blue Plan continue epogen dialysis as schedule continue renagel Subjective ROS Limited/Unobtainable: Yes Subjective pt got dialysis this morning and was seen earlier today but apparently coded this afternoon Objective Objective Last 24 Hour Vital Signs Date Time Temp Pulse Resp B/P (MAP) Pulse Ox O2 Delivery O2 Flow Rate FiO2 03/19/20 22:04 18 145/73 Mechanical Ventilator 80 03/19/20 22:00 145/73 03/19/20 21:34 117/77 03/19/20 20:49 103 20 80 03/19/20 20:29 119/72 03/19/20 19:56 101 20 100 03/19/20 18:30 98 20 72/33 (46) 94 03/19/20 18:15 97 20 110/67 (81) 94 03/19/20 18:14 102 20 100 03/19/20 15:43 102.7 79 18 107/52 (70) 95 03/19/20 14:00 100/48 03/19/20 12:00 98.4 79 18 100/48 (65) 92 03/19/20 09:36 104/50 03/19/20 09:00 Room Air 03/19/20 07:45 78 16 96 Room Air 21 03/19/20 05:38 104/50 03/19/20 04:00 98.3 83 20 106/50 (68) 97 03/19/20 02:08 102.0 03/19/20 00:00 100.9 88 20 132/67 (88) 96 Intake and Output 03/18/20 03/19/20 19:00 07:00 Intake Total 700 ml 350 ml Output Total 3000 ml Balance 700 ml -2650 ml Intake Oral 700 ml 350 ml Output Hemodialysis UF 3000 ml # Voids 1 # Bowel Movements 1 Laboratory Tests 03/19/20 04:00: White Blood Count 8.2, Red Blood Count 3.22L, Hemoglobin 9.8L, Hematocrit 29.1L , Mean Corpuscular Volume 90, Mean Corpuscular Hemoglobin 30.5, Mean Corpuscular Hemoglobin Concent 33.7, Red Cell Distribution Width 13.6, Platelet Count 209, Mean Platelet Volume 5.9L, Neutrophils (%) (Auto) , Lymphocytes (%) ( Auto) , Monocytes (%) (Auto) , Eosinophils (%) (Auto) , Basophils (%) (Auto) , Differential Total Cells Counted 100, Neutrophils % (Manual) 88H, Lymphocytes % (Manual) 6L, Monocytes % (Manual) 5, Eosinophils % (Manual) 1, Basophils % ( Manual) 0, Band Neutrophils 0, Platelet Estimate Adequate, Platelet Morphology Normal, Red Blood Cell Morphology Normal, Hypochromasia 1+, Sodium Level 131L, Potassium Level 4.0, Chloride Level 92L, Carbon Dioxide Level 23, Anion Gap 16H , Blood Urea Nitrogen 38H, Creatinine 7.3H, Estimat Glomerular Filtration Rate 8.0, Glucose Level 187H, Calcium Level 8.9, Total Bilirubin 0.6, Aspartate Amino Transf (AST/SGOT) 54H, Alanine Aminotransferase (ALT/SGPT) 19, Alkaline Phosphatase 67, Total Protein 7.2, Albumin 2.5L, Globulin 4.7, Albumin/Globulin Ratio 0.5L 03/19/20 20:31: Arterial Blood pH 7.370, Arterial Blood Partial Pressure CO2 41.9, Arterial Blood Partial Pressure O2 262.8H, Arterial Blood HCO3 23.7, Arterial Blood Oxygen Saturation 96.1, Arterial Blood Base Excess -1.5, Stoney Test Positive 03/19/20 21:33: Triglycerides Level 146 Height (Feet): 5 Height (Inches): 8.00 Weight (Pounds): 204 Objective HEAD AND NECK: No JVP. No LAD. No thyromegaly. Extraocular movement intact. Pupils are reactive to light and accommodation. LUNGS: Have decreased breathing sounds. CARDIAC: Regular rate and rhythm. S1 and S2. No murmur. No rub. ABDOMEN: Soft, nontender, and nondistended. EXTREMITIES: Right BKA. Otherwise negative. Farheen Barcenas MD Mar 19, 2020 23:17
[2020-03-20] VITALS (74 sets, daily range): BP systolic 73–191; BP diastolic 49–89
--- NOTE | 2020-03-20 | NUR ---
NURSE NOTES: Patient on Propofol 5mcg/kg/min and Dopamine 16mcg/kg/min. Patient having fever 103 per axillary, cooling measures initiated
[2020-03-20] MEDS: DOPamine 400mg/250ml 250 ML IV SCH ×2 (01:30→05:48)
--- NOTE | 2020-03-20 02:00 | NUR ---
NURSE NOTES: Bed bath oral care change of linens done. Skin is intact.
--- NOTE | 2020-03-20 04:00 | NUR ---
NURSE NOTES: SBP at 70s, dopamine already on max dose. Held propofol at this time. Will continue to monitor.
--- NOTE | 2020-03-20 04:29 | Progress Note ---
DATE: 03/19/2020 SUBJECTIVE: This is an elderly male who again came COVID positive and fever and end-stage renal disease. The patient was doing okay, had a fever yesterday and this morning. Suddenly, the patient had cardiopulmonary arrest. He was resuscitated and was transferred to ICU. The patient currently nonverbal and currently intubated. PHYSICAL EXAMINATION: VITAL SIGNS: Blood pressure is 90, pulse 110, respirations 18, temperature currently 102. Eyes are closed. NECK: Supple. CHEST: Bilateral crackles. CARDIOVASCULAR: Regular rhythm. No gallop. No murmur. ABDOMEN: Soft. EXTREMITIES: CCE. ASSESSMENT: 1. Acute cardiopulmonary arrest. 2. Fever, rule out sepsis. 3. COVID-19 positive. 4. End-stage renal disease. 5. Borderline diabetes. 6. History of DVT prophylaxis. PLAN: We will admit on ICU. Continue IV fluid, Levophed drip. Pulmonary and Cardiology is on case and it is also on case continue antibiotics. Iron Mckeon M.D. DR: ADEN JOB#: [id number] CC:
--- NOTE | 2020-03-20 04:45 | NUR ---
NURSE NOTES: SBP still at 70s. Called Dr. Chowdary, received new order to start levophed. Orders read back and confirmed by .
--- NOTE | 2020-03-20 05:00 | NUR ---
NURSE NOTES: Levophed started. Propofol resumed at 5mcg/kg/min.
[2020-03-20] MEDS: Calcium Acetate 667mg Tab ORAL SCH ×3 (05:38→16:03)
[2020-03-20] MEDS: HydrALAZINE 10mg Tab ORAL SCH (05:39)
[2020-03-20 06:27] LABS: BASOPHILS % (AUTO) 0.2 % (0.0-2.0); HEMATOCRIT 30.1 % (42.0-52.0); HEMOGLOBIN 10.4 G/DL (14.2-18.0); LYMPHOCYTES % (AUTO) 13.2 % (20.0-45.0); MEAN CORPUSCULAR VOLUME 91 FL (80-99); MONOCYTES % (AUTO) 3.8 % (1.0-10.0); NEUTROPHILS % (AUTO) 82.7 % (45.0-75.0); PLATELET COUNT 166 K/UL (150-450); RED BLOOD COUNT 3.31 M/UL (4.70-6.10); RED CELL DISTRIBUTION WIDTH 14.1 % (11.6-14.8); WHITE BLOOD COUNT 9.1 K/UL (4.8-10.8)
[2020-03-20 06:46] LABS: ANION GAP 13 mmol/L (5-15); BLOOD UREA NITROGEN 61 mg/dL (7-18); CALCIUM 8.7 MG/DL (8.5-10.1); CARBON DIOXIDE 26 MMOL/L (21-32); CHLORIDE 90 MMOL/L (98-107); CREATININE 9.7 MG/DL (0.55-1.30); POTASSIUM 4.5 MMOL/L (3.5-5.1); SODIUM 129 MMOL/L (136-145)
--- NOTE | 2020-03-20 06:47 | NUR ---
NURSE NOTES: Patient was seen and examined by Dr. Sherman. Updated him of patient's status. No new order received at this time.
--- NOTE | 2020-03-20 07:19 | NUR ---
HAND-OFF: Report given to ISMA Lindsey.
--- NOTE | 2020-03-20 07:20 | NUR ---
NURSE NOTES: Pt received from ISMA Pink. Pt does not open eyes to voice or respond to commands, gag reflex absent, does not respond to deep pain stimulus, pupils are equal and round 3 mm bilat with sluggish light rxn. Per Joesph, Dr Chowdary wishes to keep pt sedated on propofol 5 ug/kg/min despite RASS of -5. Pt noted in SR to court recording monitor. Bilat radial pulses 2+ and left pedis pulse 1+. Pt is mechanically intubated with 7.5 ETT noted 24 cm at the lip with the following settings: AC 20, TV 500, FiO2 90% Peep 10. All lung lobes noted diminished upon auscultation. Right nares NGT noted clamped without gastric residuals- pt is NPO at this time. Abd is round, large, and soft with active bowel sounds to all quadrants. Pt is anuric. Skin alterations noted- pt has generalized non-pitting edema. Pt repositioned and oral care provided. Pt has a right subclavian TLC running propofol at 5 mcg/kg/min, dopamine at 20 mcg/kg/min, and levophed at 14 mcg/min. Pt also has a LH 20g IV saline-locked. Bed is in lowest position, alarm on, side rails up x 3, call light within reach. No acute distress noted. Will continue with plan of care. Addendum: 03/20/20 at 1540 by Rosalia Grayson RN Late entry: Pt also has a [facility] HD shunt with bruits and thrills noted.
--- NOTE | 2020-03-20 08:00 | NUR ---
RD ASSESSMENT & RECOMMENDATIONS SEE CARE ACTIVITY FOR COMPLETE ASSESSMENT DAILY ESTIMATED NEEDS: Needs based on ESRD/ critical care 69kg abw 22-30 kcals/kg 5681-3169 total kcals 1.2-2 g protein/kg 83-138 g total protein 20-22 mL/kg 3922-7862 total fluid mLs NUTRITION DIAGNOSIS: * Increased protein intake needs R/T ESRD dx as evidenced by pt is HD dependent * Altered nutrition related lab values R/T diabetes as evidenced by elev BGs and POC glu ([phone]). ENTERAL NUTRITION RECOMMENDATIONS: NEPRO @40ml/hr x24 hrs to provide 960ml, 41506 kcal, 78g pro, 698ml free H2O - With HEMODYNAMIC STABILITY AND ABLE TO HAVE HOB >30 DEGREES, rec non oral feeds to meet est kcal and pro needs - Start NEPRO @20ml/hr for 6 hrs, advance as tolerated 10ml/hr q4-6 hrs to goal rate. - When tolerating TF at goal add PROSOURCE 1 pack daily to better meet protein needs as pt is on HD - Flush per MD/ HOB over 30 degrees ADDITIONAL RECOMMENDATIONS: * Maintain calibrated bedscale wt * TF RECS ABOVE WHEN STABLE FOR FEEDS, HOB >30 DEGREES * Nephrovite x 1 * Rec adding Vit D supplement: (Vit D level 12) * Monitor BGs, need for long acting insulin
[2020-03-20] MEDS: Midodrine 10mg tab ORAL SCH ×3 (08:57→17:30)
[2020-03-20] MEDS ORDERED: Minoxidil 10mg tab ORAL SCH (09:00)
[2020-03-20] MEDS ORDERED: Imdur 30mg tab ORAL SCH (09:00)
[2020-03-20] MEDS ORDERED: Ranolazine 500mg tab ORAL SCH (09:00)
[2020-03-20] MEDS ORDERED: Aspirin Baby 81mg NG SCH (09:00)
[2020-03-20] MEDS ORDERED: Ferrous Sulfate 300 MG/5 ML UDC NG SCH (09:00)
[2020-03-20] MEDS: Norepinephrine Bitartrate 8 MG in D5W 500ml 550 ML IV SCH ×3 (09:00→21:35)
[2020-03-20] MEDS ORDERED: Aspirin EC 81mg tab ORAL SCH (09:00)
[2020-03-20] MEDS ORDERED: NovoLOG Insulin Flexpen SUBQ SCH ×3 (09:00→18:00)
--- NOTE | 2020-03-20 10:00 | NUR ---
NURSE NOTES: Dr Chowdary at bedside assessing pt and made aware of pt's BG result today of 380- I informed him that full dose of insulin Novolog was given this morning and Dr Chowdary placed new order for a resistant Novolog sliding scale instead- with same frequency. Per Dr Chowdary, OK to give full dose of new order of Novolog despite pt being NPO and on levophed drip- once Levophed drip is off, nurse to inform Dr Chowdary for new parameter order. Dr Chowdary also ordered to d/c standing scale of Novolog. He is aware of today's ABG results with O2 saturation of 89. No other new orders placed. Dr Chowdary also made aware of pt's mental status (remains at RASS -5 without response to deep pain stimulation - absent gag reflex- remains on propofol drip at 5 mcg/kg/min nevertheless per Dr Chowdary).
--- NOTE | 2020-03-20 10:19 | NUR ---
*-* INSURANCE *-* UPDATED CLINICALS AND REVIEWS HAVE BEEN FAXED TO: [facility] [phone] Work Work Fax
--- NOTE | 2020-03-20 11:34 | Infectious Diseases Prog Note ---
Assessment/Plan Assessment/Plan antibiotics : none A 1. COVID 19 pneumonia 2. diabetes mellitus 3. hypertension 4. renal failure on HD 5. shock 6. fever 7. respiratory failure P 1. start vancomycin iv, zosyn 2. blood culture 3. sputum culture 4. continue isolation Subjective ROS Limited/Unobtainable: Yes Allergies: Coded Allergies: No Known Allergies (Verified , 03/05/10) Objective Vital Signs Last 24 Hour Vital Signs Date Time Temp Pulse Resp B/P (MAP) Pulse Ox O2 Delivery O2 Flow Rate FiO2 03/20/20 09:10 88 22 90 03/20/20 09:00 105/67 03/20/20 09:00 105/67 03/20/20 08:59 105/67 03/20/20 07:10 92 20 90 03/20/20 07:00 93 20 140/77 (98) 03/20/20 07:00 144/78 03/20/20 07:00 19 144/78 Mechanical Ventilator 90 03/20/20 07:00 144/78 03/20/20 06:45 94 20 139/75 (96) 03/20/20 06:30 95 20 136/74 (94) 03/20/20 06:30 94 20 03/20/20 06:25 100.0 03/20/20 06:15 96 20 133/72 (92) 03/20/20 06:00 100.5 97 20 131/73 (92) 03/20/20 06:00 133/72 03/20/20 06:00 20 133/72 Mechanical Ventilator 90 03/20/20 06:00 133/72 03/20/20 05:48 134/75 03/20/20 05:45 99 20 134/75 (94) 03/20/20 05:45 20 134/75 Mechanical Ventilator 90 03/20/20 05:30 101 20 164/80 (108) 99 03/20/20 05:30 20 164/80 Mechanical Ventilator 90 03/20/20 05:16 102 22 90 03/20/20 05:15 101 20 191/89 (123) 99 03/20/20 05:15 20 191/89 Mechanical Ventilator 90 03/20/20 05:04 75/50 03/20/20 05:00 20 75/50 Mechanical Ventilator 90 03/20/20 05:00 75/50 03/20/20 05:00 102.0 88 20 75/50 (58) 99 03/20/20 04:45 88 20 75/50 (58) 99 03/20/20 04:30 89 20 75/53 (60) 100 03/20/20 04:15 90 20 73/54 (60) 03/20/20 04:00 102.5 91 20 76/53 (61) 03/20/20 04:00 77/54 03/20/20 04:00 Mechanical Ventilator 03/20/20 04:00 92 03/20/20 04:00 90 03/20/20 03:45 92 20 74/54 (61) 03/20/20 03:40 92 22 90 03/20/20 03:30 92 20 81/56 (64) 03/20/20 03:15 92 20 79/49 (59) 100 03/20/20 03:04 20 79/49 Mechanical Ventilator 90 03/20/20 03:00 91 20 83/53 (63) 98 03/20/20 03:00 83/53 03/20/20 02:45 92 20 82/54 (63) 97 03/20/20 02:30 93 20 78/49 (59) 98 03/20/20 02:15 95 20 90/55 (67) 99 03/20/20 02:04 20 90/55 Mechanical Ventilator 90 03/20/20 02:00 105.9 96 20 96/61 (73) 99 03/20/20 02:00 78/49 03/20/20 01:32 98 20 90 03/20/20 01:30 114/62 03/20/20 01:30 98 20 104/58 (73) 99 03/20/20 01:04 19 127/70 Mechanical Ventilator 90 03/20/20 01:00 106.2 99 19 127/70 (89) 100 03/20/20 01:00 127/70 03/20/20 00:45 100 18 139/72 (94) 100 03/20/20 00:30 100 18 139/73 (95) 100 03/20/20 00:15 101 17 142/79 (100) 100 03/20/20 00:04 18 146/80 Mechanical Ventilator 90 03/20/20 00:00 Mechanical Ventilator 03/20/20 00:00 103.0 101 17 146/80 (102) 100 03/20/20 00:00 102 03/20/20 00:00 146/80 03/20/20 00:00 90 03/19/20 23:48 102 27 90 03/19/20 23:45 102 18 147/76 (99) 100 03/19/20 23:30 102 18 146/80 (102) 100 03/19/20 23:15 103 19 146/79 (101) 100 03/19/20 23:04 18 143/78 Mechanical Ventilator 90 03/19/20 23:00 103 19 143/78 (99) 100 03/19/20 23:00 143/78 03/19/20 22:49 104 19 152/83 (106) 100 03/19/20 22:49 18 143/78 Mechanical Ventilator 90 03/19/20 22:45 104 19 145/83 (103) 100 03/19/20 22:34 19 152/83 Mechanical Ventilator 90 03/19/20 22:30 105 18 140/76 (97) 100 03/19/20 22:19 19 138/76 Mechanical Ventilator 90 03/19/20 22:15 105 18 138/76 (96) 100 03/19/20 22:04 18 145/73 Mechanical Ventilator 80 03/19/20 22:00 145/73 03/19/20 22:00 145/73 03/19/20 22:00 90 03/19/20 22:00 104 19 145/73 (97) 100 03/19/20 21:47 90 03/19/20 21:45 102 20 133/77 (95) 100 03/19/20 21:34 117/77 03/19/20 21:30 103 20 117/77 (90) 100 03/19/20 21:15 103 20 77/52 (60) 100 03/19/20 21:00 101 20 123/73 (90) 100 03/19/20 20:49 103 20 80 03/19/20 20:45 101 20 126/72 (90) 100 03/19/20 20:30 100 20 123/71 (88) 03/19/20 20:29 119/72 03/19/20 20:15 100 20 122/70 (87) 100 03/19/20 20:00 100 03/19/20 20:00 101 20 128/76 (93) 100 4/23/20 20:00 Mechanical Ventilator 03/19/20 19:56 101 20 100 03/19/20 19:45 102 21 123/72 (89) 100 03/19/20 19:30 100 20 105/57 (73) 96 03/19/20 19:15 100 20 93/52 (66) 96 03/19/20 19:00 101.0 99 20 81/44 (56) 96 03/19/20 19:00 100 03/19/20 18:30 98 20 72/33 (46) 94 03/19/20 18:15 97 20 110/67 (81) 94 03/19/20 18:14 102 20 100 03/19/20 15:43 102.7 79 18 107/52 (70) 95 03/19/20 14:00 100/48 03/19/20 12:00 98.4 79 18 100/48 (65) 92 Height (Feet): 5 Height (Inches): 8.00 Weight (Pounds): 190 HEENT: other - intubated Laboratory Tests Test 03/19/20 20:31 03/19/20 21:33 03/20/20 03:30 03/20/20 07:41 Arterial Blood pH 7.370 (7.350-7.450) 7.376 (7.350-7.450) Arterial Blood Partial Pressure CO2 41.9 mmHg (35.0-45.0) 38.6 mmHg (35.0-45.0) Arterial Blood Partial Pressure O2 262.8 mmHg (75.0-100.0) H 75.7 mmHg (75.0-100.0) Arterial Blood HCO3 23.7 mmol/L (22.0-26.0) 22.1 mmol/L (22.0-26.0) Arterial Blood Oxygen Saturation 96.1 % (95-100) 89.9 % (95-100) *L Arterial Blood Base Excess -1.5 (-2-2) -2.7 (-2-2) L Stoney Test Positive Positive Triglycerides Level 146 MG/DL (30-150) White Blood Count 9.1 K/UL (4.8-10.8) Red Blood Count 3.31 M/UL (4.70-6.10) L Hemoglobin 10.4 G/DL (14.2-18.0) L Hematocrit 30.1 % (42.0-52.0) L Mean Corpuscular Volume 91 FL (80-99) Mean Corpuscular Hemoglobin 31.2 PG (27.0-31.0) H Mean Corpuscular Hemoglobin Concent 34.3 G/DL (32.0-36.0) Red Cell Distribution Width 14.1 % (11.6-14.8) Platelet Count 166 K/UL (150-450) Mean Platelet Volume 6.7 FL (6.5-10.1) Neutrophils (%) (Auto) 82.7 % (45.0-75.0) H Lymphocytes (%) (Auto) 13.2 % (20.0-45.0) L Monocytes (%) (Auto) 3.8 % (1.0-10.0) Eosinophils (%) (Auto) 0.0 % (0.0-3.0) Basophils (%) (Auto) 0.2 % (0.0-2.0) Sodium Level 129 MMOL/L (136-145) L Potassium Level 4.5 MMOL/L (3.5-5.1) Chloride Level 90 MMOL/L (98-107) L Carbon Dioxide Level 26 MMOL/L (21-32) Anion Gap 13 mmol/L (5-15) Blood Urea Nitrogen 61 mg/dL (7-18) H Creatinine 9.7 MG/DL (0.55-1.30) H Estimat Glomerular Filtration Rate 5.8 mL/min (>60) Glucose Level 358 MG/DL (74-106) #H Calcium Level 8.7 MG/DL (8.5-10.1) Current Medications Medications (Trade) Dose Ordered Sig/Rima Route PRN Reason Start Time Stop Time Status Last Admin Dose Admin Acetaminophen (Tylenol) 650 mg Q4H PRN ORAL Mild Pain (Pain Scale 1-3) 03/19/20 21:04 04/18/20 21:03 03/20/20 05:39 Albuterol/ Ipratropium (Combivent Respimat) 1 puff Q6H PRN INH SHORTNESS OF BREATH 03/19/20 21:04 04/18/20 21:03 Aspirin (ASA) 81 mg DAILY NG 03/20/20 09:00 05/04/20 08:59 03/20/20 08:58 Atorvastatin Calcium (Lipitor) 40 mg BEDTIME ORAL 03/19/20 21:00 06/13/20 20:59 03/19/20 21:33 Calcium Acetate (Phoslo) 1,334 mg TIAC ORAL 03/20/20 06:30 06/14/20 06:29 03/20/20 05:38 Chlorhexidine Gluconate (Zakiya-Hex 2%) 1 applic DAILY@2000 TOPIC 03/20/20 20:00 06/18/20 19:59 Dextrose (Dextrose 50%) 25 ml Q30M PRN IV Hypoglycemia 03/19/20 21:30 06/13/20 17:59 Dextrose (Dextrose 50%) 50 ml Q30M PRN IV Hypoglycemia 03/19/20 21:30 06/13/20 17:59 Dopamine HCl/ Dextrose 250 ml @ 0 mls/hr Q24H IV 03/19/20 21:04 06/17/20 21:03 03/20/20 05:48 Escitalopram Oxalate (Lexapro) 5 mg DAILY ORAL 03/20/20 09:00 04/15/20 08:59 03/20/20 08:57 Famotidine (Pepcid) 20 mg DAILY ORAL 03/20/20 09:00 06/14/20 08:59 03/20/20 08:58 Ferrous Sulfate (Feosol) 300 mg DAILY NG 03/20/20 09:00 06/14/20 08:59 03/20/20 08:57 Hydralazine HCl (Apresoline) 10 mg EVERY 8 HOURS ORAL 03/19/20 22:00 06/13/20 21:59 Insulin Aspart (NovoLOG) TWICE A DAY SUBQ 03/20/20 09:00 06/13/20 17:59 03/20/20 09:10 Insulin Aspart (NovoLOG) 12 units DAILY SUBQ 03/20/20 09:00 06/14/20 08:59 Isosorbide Mononitrate (Imdur) 30 mg DAILY ORAL 03/20/20 09:00 04/15/20 08:59 Metoclopramide HCl (Reglan) 5 mg TID ORAL 03/20/20 09:00 04/14/20 17:59 03/20/20 08:57 Midodrine (Pro-Amatine) 10 mg THREE TIMES A DAY ORAL 03/20/20 09:00 06/13/20 17:59 03/20/20 08:57 Minoxidil (Loniten) 10 mg MoWeFr@0900,1800 ORAL 03/20/20 09:00 06/14/20 08:59 Minoxidil (Loniten) 10 mg Traylor@0900,1800 ORAL 03/22/20 09:00 06/20/20 08:59 Norepinephrine Bitartrate 8 mg/ Dextrose 558 ml @ 0 mls/hr Q24H IV 03/20/20 09:00 04/19/20 08:59 03/20/20 09:00 Propofol 100 ml @ 0 mls/hr Q24H IV 03/19/20 21:25 03/21/20 21:24 03/19/20 22:04 Quetiapine Fumarate (SEROqueL) 25 mg DAILY ORAL 03/20/20 09:00 04/30/20 08:59 03/20/20 08:58 Ranolazine (Ranexa ER 500mg) 500 mg BID ORAL 03/20/20 09:00 06/13/20 17:59 Efren Mcmanus MD Mar 20, 2020 11:34
--- NOTE | 2020-03-20 12:00 | NUR ---
NURSE NOTES: Pt repositioned, oral care provided, no distress noted. Pt afebrile.
--- NOTE | 2020-03-20 12:07 | Pulmonology Progress Note ---
Assessment/Plan Assessment/Plan IMPRESSION: 1. Pneumonia, positive COVID-19. 2. Respiratory failure 3. ESRD on dialysis. 4. Hypertension. 5. Right BKA. 6. residential resident. DISCUSSION: Positive COVID-19. Hemodialysis per renal Continue vent 100% fiO2; PEEP 8 Levophed as needed Continue pulmonary hygiene. I will follow. Subjective ROS Limited/Unobtainable: Yes Interval Events: None new; is + COVID 19, now intubated; doing poorly Constitutional: Reports: fever, other - [id number] HEENT: Repors: no symptoms Respiratory: Reports: no symptoms Cardiovascular: Reports: no symptoms Gastrointestinal/Abdominal: Denies: nausea, vomiting, diarrhea Musculoskeletal: Denies: pain Allergies: Coded Allergies: No Known Allergies (Verified , 03/05/10) Objective Last 24 Hour Vital Signs Date Time Temp Pulse Resp B/P (MAP) Pulse Ox O2 Delivery O2 Flow Rate FiO2 03/20/20 09:10 88 22 90 03/20/20 09:00 105/67 03/20/20 09:00 105/67 03/20/20 08:59 105/67 03/20/20 07:10 92 20 90 03/20/20 07:00 93 20 140/77 (98) 03/20/20 07:00 144/78 03/20/20 07:00 19 144/78 Mechanical Ventilator 90 03/20/20 07:00 144/78 03/20/20 06:45 94 20 139/75 (96) 03/20/20 06:30 95 20 136/74 (94) 03/20/20 06:30 94 20 03/20/20 06:25 100.0 03/20/20 06:15 96 20 133/72 (92) 03/20/20 06:00 100.5 97 20 131/73 (92) 03/20/20 06:00 133/72 03/20/20 06:00 20 133/72 Mechanical Ventilator 90 03/20/20 06:00 133/72 03/20/20 05:48 134/75 03/20/20 05:45 99 20 134/75 (94) 03/20/20 05:45 20 134/75 Mechanical Ventilator 90 03/20/20 05:30 101 20 164/80 (108) 99 03/20/20 05:30 20 164/80 Mechanical Ventilator 90 03/20/20 05:16 102 22 90 03/20/20 05:15 101 20 191/89 (123) 99 03/20/20 05:15 20 191/89 Mechanical Ventilator 90 03/20/20 05:04 75/50 03/20/20 05:00 20 75/50 Mechanical Ventilator 90 03/20/20 05:00 75/50 03/20/20 05:00 102.0 88 20 75/50 (58) 99 03/20/20 04:45 88 20 75/50 (58) 99 03/20/20 04:30 89 20 75/53 (60) 100 03/20/20 04:15 90 20 73/54 (60) 03/20/20 04:00 102.5 91 20 76/53 (61) 03/20/20 04:00 77/54 03/20/20 04:00 Mechanical Ventilator 03/20/20 04:00 92 03/20/20 04:00 90 03/20/20 03:45 92 20 74/54 (61) 03/20/20 03:40 92 22 90 03/20/20 03:30 92 20 81/56 (64) 03/20/20 03:15 92 20 79/49 (59) 100 03/20/20 03:04 20 79/49 Mechanical Ventilator 90 03/20/20 03:00 91 20 83/53 (63) 98 03/20/20 03:00 83/53 03/20/20 02:45 92 20 82/54 (63) 97 03/20/20 02:30 93 20 78/49 (59) 98 03/20/20 02:15 95 20 90/55 (67) 99 03/20/20 02:04 20 90/55 Mechanical Ventilator 90 03/20/20 02:00 105.9 96 20 96/61 (73) 99 03/20/20 02:00 78/49 03/20/20 01:32 98 20 90 03/20/20 01:30 114/62 03/20/20 01:30 98 20 104/58 (73) 99 03/20/20 01:04 19 127/70 Mechanical Ventilator 90 03/20/20 01:00 106.2 99 19 127/70 (89) 100 03/20/20 01:00 127/70 03/20/20 00:45 100 18 139/72 (94) 100 03/20/20 00:30 100 18 139/73 (95) 100 03/20/20 00:15 101 17 142/79 (100) 100 03/20/20 00:04 18 146/80 Mechanical Ventilator 90 03/20/20 00:00 Mechanical Ventilator 03/20/20 00:00 103.0 101 17 146/80 (102) 100 03/20/20 00:00 102 03/20/20 00:00 146/80 03/20/20 00:00 90 03/19/20 23:48 102 27 90 03/19/20 23:45 102 18 147/76 (99) 100 03/19/20 23:30 102 18 146/80 (102) 100 03/19/20 23:15 103 19 146/79 (101) 100 03/19/20 23:04 18 143/78 Mechanical Ventilator 90 03/19/20 23:00 103 19 143/78 (99) 100 03/19/20 23:00 143/78 03/19/20 22:49 104 19 152/83 (106) 100 03/19/20 22:49 18 143/78 Mechanical Ventilator 90 03/19/20 22:45 104 19 145/83 (103) 100 03/19/20 22:34 19 152/83 Mechanical Ventilator 90 03/19/20 22:30 105 18 140/76 (97) 100 03/19/20 22:19 19 138/76 Mechanical Ventilator 90 03/19/20 22:15 105 18 138/76 (96) 100 03/19/20 22:04 18 145/73 Mechanical Ventilator 80 03/19/20 22:00 145/73 03/19/20 22:00 145/73 03/19/20 22:00 90 03/19/20 22:00 104 19 145/73 (97) 100 03/19/20 21:47 90 03/19/20 21:45 102 20 133/77 (95) 100 03/19/20 21:34 117/77 03/19/20 21:30 103 20 117/77 (90) 100 03/19/20 21:15 103 20 77/52 (60) 100 03/19/20 21:00 101 20 123/73 (90) 100 03/19/20 20:49 103 20 80 03/19/20 20:45 101 20 126/72 (90) 100 03/19/20 20:30 100 20 123/71 (88) 03/19/20 20:29 119/72 03/19/20 20:15 100 20 122/70 (87) 100 03/19/20 20:00 100 03/19/20 20:00 101 20 128/76 (93) 100 03/19/20 20:00 Mechanical Ventilator 03/19/20 19:56 101 20 100 03/19/20 19:45 102 21 123/72 (89) 100 03/19/20 19:30 100 20 105/57 (73) 96 03/19/20 19:15 100 20 93/52 (66) 96 03/19/20 19:00 101.0 99 20 81/44 (56) 96 03/19/20 19:00 100 03/19/20 18:30 98 20 72/33 (46) 94 03/19/20 18:15 97 20 110/67 (81) 94 03/19/20 18:14 102 20 100 03/19/20 15:43 102.7 79 18 107/52 (70) 95 03/19/20 14:00 100/48 Intake and Output 03/19/20 03/20/20 19:00 07:00 Intake Total 660 ml 765.688 ml Output Total 0 ml 0 ml Balance 660 ml 765.688 ml Intake Oral 660 ml IV Total 765.688 ml Output Urine Total 0 ml 0 ml General Appearance: no acute distress HEENT: other - intubated Respiratory/Chest: chest wall non-tender, lungs clear Cardiovascular: normal peripheral pulses Abdomen: soft, non tender Extremities: other - R BKA Neurologic/Psychiatric: other - sleeping Laboratory Tests 03/19/20 20:31: Arterial Blood pH 7.370, Arterial Blood Partial Pressure CO2 41.9, Arterial Blood Partial Pressure O2 262.8H, Arterial Blood HCO3 23.7, Arterial Blood Oxygen Saturation 96.1, Arterial Blood Base Excess -1.5, Stoney Test Positive 03/19/20 21:33: Triglycerides Level 146 03/20/20 03:30: White Blood Count 9.1, Red Blood Count 3.31L, Hemoglobin 10.4L, Hematocrit 30.1L , Mean Corpuscular Volume 91, Mean Corpuscular Hemoglobin 31.2H, Mean Corpuscular Hemoglobin Concent 34.3, Red Cell Distribution Width 14.1, Platelet Count 166, Mean Platelet Volume 6.7, Neutrophils (%) (Auto) 82.7H, Lymphocytes ( %) (Auto) 13.2L, Monocytes (%) (Auto) 3.8, Eosinophils (%) (Auto) 0.0, Basophils (%) (Auto) 0.2, Sodium Level 129L, Potassium Level 4.5, Chloride Level 90L, Carbon Dioxide Level 26, Anion Gap 13, Blood Urea Nitrogen 61H, Creatinine 9.7H, Estimat Glomerular Filtration Rate 5.8, Glucose Level 358#H, Calcium Level 8.7 03/20/20 07:41: Arterial Blood pH 7.376, Arterial Blood Partial Pressure CO2 38.6, Arterial Blood Partial Pressure O2 75.7, Arterial Blood HCO3 22.1, Arterial Blood Oxygen Saturation 89.9*L, Arterial Blood Base Excess -2.7L, Stoney Test Positive Current Medications Medications (Trade) Dose Ordered Sig/Rima Route PRN Reason Start Time Stop Time Status Last Admin Dose Admin Acetaminophen (Tylenol) 650 mg Q4H PRN ORAL Mild Pain (Pain Scale 1-3) 03/19/20 21:04 04/18/20 21:03 03/20/20 05:39 Albuterol/ Ipratropium (Combivent Respimat) 1 puff Q6H PRN INH SHORTNESS OF BREATH 03/19/20 21:04 04/18/20 21:03 Aspirin (ASA) 81 mg DAILY NG 03/20/20 09:00 05/04/20 08:59 03/20/20 08:58 Atorvastatin Calcium (Lipitor) 40 mg BEDTIME ORAL 03/19/20 21:00 06/13/20 20:59 03/19/20 21:33 Calcium Acetate (Phoslo) 1,334 mg TIAC ORAL 03/20/20 06:30 06/14/20 06:29 03/20/20 05:38 Chlorhexidine Gluconate (Zakiya-Hex 2%) 1 applic DAILY@2000 TOPIC 03/20/20 20:00 06/18/20 19:59 Dextrose (Dextrose 50%) 25 ml Q30M PRN IV Hypoglycemia 03/19/20 21:30 06/13/20 17:59 Dextrose (Dextrose 50%) 50 ml Q30M PRN IV Hypoglycemia 03/19/20 21:30 06/13/20 17:59 Dopamine HCl/ Dextrose 250 ml @ 0 mls/hr Q24H IV 03/19/20 21:04 06/17/20 21:03 03/20/20 05:48 Escitalopram Oxalate (Lexapro) 5 mg DAILY ORAL 03/20/20 09:00 04/15/20 08:59 03/20/20 08:57 Famotidine (Pepcid) 20 mg DAILY ORAL 03/20/20 09:00 06/14/20 08:59 03/20/20 08:58 Ferrous Sulfate (Feosol) 300 mg DAILY NG 03/20/20 09:00 06/14/20 08:59 03/20/20 08:57 Hydralazine HCl (Apresoline) 10 mg EVERY 8 HOURS ORAL 03/19/20 22:00 06/13/20 21:59 Insulin Aspart (NovoLOG) TWICE A DAY SUBQ 03/20/20 09:00 06/13/20 17:59 03/20/20 09:10 Insulin Aspart (NovoLOG) 12 units DAILY SUBQ 03/20/20 09:00 06/14/20 08:59 Isosorbide Mononitrate (Imdur) 30 mg DAILY ORAL 03/20/20 09:00 04/15/20 08:59 Metoclopramide HCl (Reglan) 5 mg TID ORAL 03/20/20 09:00 04/14/20 17:59 03/20/20 08:57 Midodrine (Pro-Amatine) 10 mg THREE TIMES A DAY ORAL 03/20/20 09:00 06/13/20 17:59 03/20/20 08:57 Minoxidil (Loniten) 10 mg MoWeFr@0900,1800 ORAL 03/20/20 09:00 06/14/20 08:59 Minoxidil (Loniten) 10 mg Traylor@0900,1800 ORAL 03/22/20 09:00 06/20/20 08:59 Norepinephrine Bitartrate 8 mg/ Dextrose 558 ml @ 0 mls/hr Q24H IV 03/20/20 09:00 04/19/20 08:59 03/20/20 09:00 Piperacillin Sod/ Tazobactam Sod 2.25 gm/Dextrose 55 ml @ 110 mls/hr Q8HR IVPB 03/20/20 14:00 03/25/20 13:59 Propofol 100 ml @ 0 mls/hr Q24H IV 03/19/20 21:25 03/21/20 21:24 03/19/20 22:04 Quetiapine Fumarate (SEROqueL) 25 mg DAILY ORAL 03/20/20 09:00 04/30/20 08:59 03/20/20 08:58 Ranolazine (Ranexa ER 500mg) 500 mg BID ORAL 03/20/20 09:00 06/13/20 17:59 Vancomycin HCl (Vanco rx to dose) 1 ea DAILY PRN MISC Per rx protocol 03/20/20 11:45 04/19/20 11:44 Don Taylor MD Mar 20, 2020 12:07
--- NOTE | 2020-03-20 13:32 | NUR ---
CASE MANAGEMENT: REVIEW 03/20/2020 SI:COVID POSITIVE. ESRD. ACUTE CARDIOPULMONARY ARREST 03/19. T 98.7 HR 76 RR 20 B/P 90/62 SATS 96% ON MECH VENT FIO2 90 LABS: NA 129 CL 90 BUN 61 CR 9.7 GLU 358 ABGs O2 SAT 89.9 BE -2.7 IS:HYDRALAZINE PO Q8H INSULIN ASPART SUBQ BID RANEXA PO BID LEXAPRO PO QD INSULIN ASPART SUBQ QD IMDUR PO QD MINOXIDIL PO MWF VANCO IV QD PROPOFOL IV PER PARAMETERS DOPAMINE IV PER PARAMETERS LEVOPHED IV PER PARAMETERS ZOSYN IV Q8H ICU PLAN OF CARE: SPUTUM CX CXR
--- NOTE | 2020-03-20 14:00 | NUR ---
NURSE NOTES: Pt repositioned, no distress noted, no changes in mental status. Dr Mckeon in the unit and discussed care plan with him- he was made aware of pt's mental status as well. Addendum: 03/20/20 at 1536 by Rosalia Grayson RN Late entry: Dr Mckeon also made aware of Na and Cl results for today (129 and 90, respectively) no new orders.
[2020-03-20] MEDS: Piperacillin/Tazobactam 2.25 GM in D5W 55 ML IVPB SCH ×2 (14:27→21:13)
[2020-03-20] MEDS ORDERED: Vancomycin 1.5 GM in NS 275 ML IVPB SCH (15:00)
[2020-03-20] MEDS ORDERED: Vancomycin 1.5gm/NS Premix q24h IVPB SCH (15:00)
--- NOTE | 2020-03-20 15:01 | NUR ---
TAR [employer]IA PU[employer] OPERATOR NOTE Per AMISH Wilcox from [facility], pt is self-responsible. Primary contact is pt's brother Alverto Meyer [phone]. AMISH attempted to reach pt's brother Alverto Meyer but the call was not answered w/o vm option. Alverto Meyer: [phone] (no answer, no voicemail option) [phone] (no answer, no voicemail option) [phone] (busy) [phone] (no answer, no voicemail option) Liana Gonzales (/ex-) [phone] (no answer, no voicemail option) Addendum: 03/20/20 at 1644 by [place] AMISH attempted to call Alverto Meyer [phone] (no answer, no vm option), (no answer, no vm option), (busy), (no answer, no vm option)
--- NOTE | 2020-03-20 16:00 | NUR ---
NURSE NOTES: Pt repositioned, no distress noted, temp 100.4 rectal at this time, cooling blanket turned on.
--- NOTE | 2020-03-20 17:48 | NUR ---
NURSE NOTES: Rectal temp now noted 98.3 F.
--- NOTE | 2020-03-20 19:15 | NUR ---
HAND-OFF: Report given to ISMA Pink.
--- NOTE | 2020-03-20 19:16 | NUR ---
NURSE NOTES: Received report from ISMA Lindsey. Patient sedated with Propofol. Patient intubated with ETT 7.5, 24 lipline. AC 20, 500, PEEP 10, 90% saturation. Right nare NGT patent and intact. With right subclavian TLC, receiving Levophed 20mcg/min and Propofol 5mcg/kg/min. Left hand g 20 heplock. Right upper arm shunt, bruit and thrill present. On right arm precaution. With right BKA. Stump kept elevated. Head of bed elevated. Bed alarm on. Bed locked and in lowest position. Call light within reach.
[2020-03-20] MEDS ORDERED: Dyna-Hex 2% Top Sol 2oz TOPIC SCH ×2 (20:00)
[2020-03-20] MEDS ORDERED: Heparin 5000 units/ml inj SUBQ SCH (21:00)
--- NOTE | 2020-03-20 21:00 | NUR ---
NURSE NOTES: Patient afebrile at this time. No signs of pain or discomfort.
[2020-03-20] MEDS: Atorvastatin 20mg tab ORAL SCH (21:13)
--- NOTE | 2020-03-20 23:00 | NUR ---
NURSE NOTES: Repositioned patient. Sinus rhythm on the monitor.
[2020-03-21] VITALS (17 sets, daily range): BP systolic 0–124; BP diastolic 0–71
--- NOTE | 2020-03-21 01:00 | NUR ---
NURSE NOTES: SBP 88mmHg, Levophed at 26mcg/min.
--- NOTE | 2020-03-21 03:00 | NUR ---
NURSE NOTES: Patient condition remains the same, unresponsive to pain and no eye opening. Kept on Propofol drip, on lowest dose. Addendum: 03/21/20 at 0307 by ANUSHA DACOSTA RN NURSE NOTES: Patient condition remains the same, unresponsive to pain and no eye opening. Kept on Propofol drip, on lowest dose as per order.
[2020-03-21] MEDS: Norepinephrine Bitartrate 8 MG in D5W 500ml 550 ML IV SCH (03:48)
[2020-03-21] MEDS: DOPamine 400mg/250ml 250 ML IV SCH (03:55)
--- NOTE | 2020-03-21 03:55 | NUR ---
CODE SARAH: Patient's BP dropped to 60s. Levophed increased to max dose. Dopamine restarted to max dose. Patient became PEA, CPR started and leslee barnett announced. See Code sheet which remains on paper. Addendum: 03/21/20 at 0602 by ANUSHA DACOSTA RN NURSE NOTES: Propofol held.
--- NOTE | 2020-03-21 04:30 | NUR ---
NURSE NOTES: Patient's brother, Alverto was called by Charge nurse and updated him of the patient's status. Charge nurse informed patient's brother that the patient has personal belongings including a cellphone. As per brother, he is not interested to take the belongings, informed him that the belongings will be available at the hospital's lost and found should he change his mind.
--- NOTE | 2020-03-21 04:30 | NUR ---
NURSE NOTES: Called Dr. Mckeon on his emergency line to update him of patient's status. Left a message. Awaiting for return call.
--- NOTE | 2020-03-21 04:35 | NUR ---
NURSE NOTES: Charge nurse called [facility], as per them not a candidate for organ donation. Information Technology Assistant's office was called, not a java grails developer's case.
--- NOTE | 2020-03-21 04:50 | Emergency Room Report ---
History of Present Illness General Chief Complaint: Fever Source: Medical Record Present Illness Allergies: Coded Allergies: No Known Allergies (Verified , 03/05/10) COVID-19 Screening Contact w/high risk pt: Yes Recent Travel to affected area: No Experienced COVID-19 symptoms?: Yes COVID-19 symptoms experienced: Fever (T>100.4F or >38C), Shortness of Breath Nursing Documentation-PMH Past Medical History: No History, Except For Hx Cardiac Problems: Yes Hx Hypertension: Yes Hx Diabetes: Yes Hx Cancer: No Hx Gastrointestinal Problems: Yes Hx Neurological Problems: No Physical Exam Vital Signs Date Time Temp Pulse Resp B/P (MAP) Pulse Ox O2 Delivery O2 Flow Rate FiO2 03/17/20 08:00 100.4 89 19 117/57 (77) 94 03/17/20 09:00 Room Air 03/17/20 21:11 21 Procedures CPR/Code Blue CPR/Code Blue Narrative I was called to evaluate patient after cardiac arrest. Patient was noted to have prior history of end-stage renal disease as well as previous cardiac arrest and was positive for wan virus. Patient had been given epi prior to my arrival. He is undergoing CPR. Patient is given multiple amounts of medications without any return of spontaneous circulation. See code sheet for full details. Time of was 407. Family and primary care physician to be notified by staff. Medical Decision Making Diagnostic Impression: Primary Impression: Fever Additional Impression: ESRD (end stage renal disease) on dialysis Last Vital Signs Date Time Temp Pulse Resp B/P (MAP) Pulse Ox O2 Delivery O2 Flow Rate FiO2 03/21/20 03:55 70/50 03/21/20 03:41 81 20 90 03/21/20 02:30 97 03/21/20 02:00 Mechanical Ventilator 03/21/20 00:00 99.1 Disposition: ADMITTED INPATIENT Condition: Stable Referrals: NON PHYSICIAN (PCP) Carlos Fletcher MD Mar 21, 2020 04:50
--- NOTE | 2020-03-21 04:50 | NUR ---
NURSE NOTES: Post mortem done
--- NOTE | 2020-03-21 19:28 | Discharge Summary ---
Discharge Summary Discharge Summary _ SUMMARY DATE OF ADMISSION: 03/15/2020 DATE OF EXPIRATION: 03/21/2020 REASON FOR ADMISSION: 50 years old male with past medical history of end-stage renal disease, on hemodialysis, hypertension, diabetes mellitus, was sent for evaluation due to fever . fevere 103.6 in triage. No cough. No chest pain or shortness of breath. Pulse oximetry was 96% on room air. Laboratory work-up revealed no leukocytosis,hemoglobin 10.5, hematocrit 30.5 , platelet count 198. Lymphocyte percentage 12.1. Sodium 124. BUN 41, creatinine 8.0, consistent with known history of end-stage renal disease. Lactic acid 0.7. AST 31 , ALT 26. Troponin 0.068 , pro BNP 4247 EKG revealed sinus rhythm , no acute ischemic changes. Chest x-ray revealed bilateral patchy infiltrates. Patient was swabbed for COVID and admitted for further management. CONSULTANTS: pulmonary Dr. Chowdary ID specialist Dr. Mcmanus forge press operator Dr. Barcenas [place] [employer]RSE: Patient admitted to isolation room. Hemodialysis was arranged as per forge press operator with close monitoring of volumes , renal parameters and electrolytes. DVT prophylaxis provided. Blood sugar was managed with sliding scale of insulin. Patient started on empiric antibiotics. Blood cultures were negative. Influenza swab came back negative. 2 SARS -CoV-2 by PCR on 03/15 was detected. Isolation was continued. Supplemental oxygen provided and titrated to keep pulse oximetry above 92%. Pulmonary hygiene provided. On 03/19 patient became short of breath and required oral intubation . In addition central line was placed for pressors . Patient was on high FiO2 of 90% and PEEP of 10. Follow-up chest x-ray showed increased hazy opacity in the lungs Antibiotic continued. Pulmonary hygiene provided. NG tube was placed to provide nutrition. Abdominal x-ray confirmed placement. Strict aspiration precaution maintained. Patient required start of pressors for hemodynamic support. Patient was on Levophed and Dopamine which titrated to keep mean arterial blood pressure above 65. Patient sustained cardiopulmonary arrest on 03/21. ACLS protocol initiated. D Unfortunately all attempts appeared to be futile. Patient was pronounced at 04:08 on 03/21 . Cause of : cardiopulmonary arrest secondary to COVID-19 pneumonia. FINAL DIAGNOSES: Status post cardiopulmonary arrest Acute respiratory failure requiring intubation Possible sepsis Shock Confirmed COVID-19 pneumonia Possible pulmonary edema End-stage renal disease on hemodialysis Hypertension Right BKA Borderline diabetes mellitus Electrolyte imbalance Anemia of chronic kidney disease I have been assigned to dictate discharge summary for this account. I was not involved in the patient's management. Serina Bagley NP Mar 21, 2020 19:28
--- NOTE | 2020-03-22 03:00 | History and Physical Report ---
DATE OF ADMISSION: 03/15/2020 HISTORY OF PRESENT ILLNESS: This is a 50-year-old male, who is currently in the ICU, critically sick, intubated, nonverbal, and has cardiopulmonary arrest. PAST MEDICAL HISTORY: Significant for cardiopulmonary arrest. PHYSICAL EXAMINATION: GENERAL: This is an elderly male, who is currently awake and nonverbal, still critically sick, and on pressor support on the ventilator. VITAL SIGNS: Blood pressure is 130/70, pulse 74, respirations 18. SKIN: Good skin turgor. HEENT: NAD. CHEST: Bilateral decreased breath sounds. CARDIOVASCULAR: Regular rhythm. No gallop. No murmur. ABDOMEN: Soft. Positive bowel sounds. Nontender. EXTREMITIES: No edema. GENITOURINARY: Deferred. LABORATORY DATA: The patient's laboratories are pending. ASSESSMENT AND PLAN: 1. Acute cardiopulmonary arrest. 2. COVID positive. 3. Pneumonia. 4. End-stage renal disease, on hemodialysis. 5. Hypertension. 6. Diabetes. PLAN: We will currently continue IV antibiotic. Continue bronchodilator treatments. Continue weaning protocols. Pulmonary, Cardiology, and ID is on consult. Iron Mckeon M.D. DR: JULIA JOB#: [id number] CC:
[2020-03-22] MEDS ORDERED: Minoxidil 10mg tab ORAL SCH ×2 (09:00)
--- NOTE | 2020-03-23 12:36 | CDS Physician Query ---
Clarification is required for compliance, coding accuracy, and to reflect severity of illness for this patient. Dear Dr. Iron Mckeon Date: 03/23/2020 CDS name: Rosalie Mcfarland Clinical Documentation: HNP: 50-year-old male, who is currently in the ICU, critically sick, intubated, nonverbal, and has cardiopulmonary arrest...COVID positive...Pneumonia. 03/18 note: Fever, rule out sepsis...COVID positive. Vitals/labs on admit: Temp 103.6, RR 22, HR 89, WBC 6.7 A possible diagnosis of Sepsis was made in the medical record. Upon review, it is difficult to determine whether this diagnosis has been ruled in, ruled out, or is still being worked up. Please indicate below the status of the aforementioned diagnosis. [] Treated and resolve [] Presumed and treated [] Currently under treatment [] Still being worked-up [] Ruled out *Present on Admission: [] Yes [] No [] Clinically Undetermined Physician signature Date Please also document in your Progress Notes and/or Discharge Summary and indicate if the condition was present on admission. DANIID
--- NOTE | 2020-03-23 15:35 | NUR ---
*-* INSURANCE *-* UPDATED CLINICALS AND REVIEWS HAVE BEEN FAXED TO: [facility] [phone] Work Work Fax Addendum: 03/23/20 at 1536 by MIGUELINA MACK CM DISCHARGE LASHAE HAS BEEN FAXED
== END 2020-03-21 04:08 | disposition expired | DRG 137 ==
LOC: EDBD 06:35 → EMR 07:55 → EDBEDREQ 13:30 → 4E 13:49 → EDBEDREQ 15:13 → ICU 03-19 17:52
PROC: 5A1945Z Respiratory Ventilation, 24-96 Consecutive Hours (ICD-10-PCS; principal; 2020-03-19)
PROC: 05H533Z Insertion of Infusion Device into Right Subclavian Vein, Percutaneous Approach (ICD-10-PCS; 2020-03-19)
PROC: 0BH17EZ Insertion of Endotracheal Airway into Trachea, Via Natural or Artificial Opening (ICD-10-PCS; 2020-03-19)
DX: U07.1 COVID-19 (principal); I12.0 Hypertensive chronic kidney disease with stage 5 chronic kidney disease or end stage renal disease; J12.89 Other viral pneumonia; N18.6 End stage renal disease; N25.0 Renal osteodystrophy; E83.51 Hypocalcemia; E87.1 Hypo-osmolality and hyponatremia; D63.1 Anemia in chronic kidney disease; I46.9 Cardiac arrest, cause unspecified; J96.90 Respiratory failure, unspecified, unspecified whether with hypoxia or hypercapnia; R57.9 Shock, unspecified; E11.22 Type 2 diabetes mellitus with diabetic chronic kidney disease; Z99.2 Dependence on renal dialysis; J96.00 Acute respiratory failure, unspecified whether with hypoxia or hypercapnia; Z89.511 Acquired absence of right leg below knee; E87.79 Other fluid overload
CPT/HCPCS: 36415; 36600; 71045; 74018; 80048; 80053; 82306; 82550; 82553; 82803; 82962; 83605; 83735; 83880; 83970; 84478; 84484; 85007; 85025; 86706; 86710; 87040; 87070; 87081; 87205; 87635; 92950; 93005; 94002; 94003; 94664; 96365; 96368; 99285; J1815